=== PATIENT | female | born 1945 | race Caucasian/White ===

== ENCOUNTER 2024-05-12 13:30 | Inpatient (IN) | payer OTHER, SELFPAY ==
[2024-05-11 17:23] VITALS: BMI 26.4
[2024-05-11 17:24] VITALS: BP 160/86
[2024-05-11 17:26] VITALS: BP 160/76
[2024-05-11 17:56] LABS: % Eosinophils 4.4 % (0-6); % Immature Granulocytes 0.3 % (0-0.5); % Lymphocytes 26.9 % (20.5-51.1); % Monocytes 7.5 % (1.7-9.3); % Neutrophils 59.9 % (42.2-75.2); Absolute Basophils 0.1 10^3/uL (0-0.2); Absolute Eosinophils 0.3 10^3/uL (0-0.7); Absolute Lymphocytes 1.8 10^3/uL (1.2-3.4); Absolute Monocytes 0.5 10^3/uL (0.1-0.6); Absolute Neutrophils 4.1 10^3/uL (1.4-6.5); Hematocrit 38.6 % (37.0-47.0); Hemoglobin 12.1 g/dL (12.0-16.0); Mean Corp Hgb Conc. 31.3 g/dL (33.0-37.0); Mean Corpuscular Hgb 26.2 pg (27.0-31.0); Mean Corpuscular Volume 83.7 fL (81.0-99.0); Mean Platelet Volume 9.1 fL (7.4-10.4); Nucleated Red Blood Cells % 0 %; Platelet Count 292 10^3/uL (130-400); Red Blood Cell Count 4.61 10^6/uL (4.20-5.40); White Blood Cell Count 6.8 10^3/uL (4.8-10.8)
[2024-05-11 18:00] VITALS: BP 142/81
[2024-05-11 18:08] LABS: ALT (SGPT) 18 U/L (0-35); AST (SGOT) 22 U/L (14-36); Albumin 4.4 g/dl (3.5-5.0); Alkaline Phosphatase 76 U/L (38-126); Blood Urea Nitrogen 29 mg/dl (7-17); Calcium 8.9 mg/dl (8.4-10.2); Carbon Dioxide 24 mmol/L (22-30); Chloride 103 mmol/L (98-107); Estimated Creatinine Clearance 54 ml/min; Glucose 110 mg/dl (70-99); Potassium 4.2 mmol/L (3.5-5.1); Sodium 140 mmol/L (135-145); Total Bilirubin 0.2 mg/dl (0.2-1.3); Total Protein 6.9 g/dl (6.3-8.2); eGFR > 60.00
--- NOTE | 2024-05-11 18:51 | ED.GENMED ---
History of Present Illness
<Elsa Fountain MD, Resident - Last Filed: 05/11/24 21:53>
General
Chief Complaint: Weakness
Time Seen by Provider: 05/11/24 17:57
History of Present Illness
History of Present Illness:
79 y/o female with past medical history of hypothyroidism and Meniere's disease presenting to the ED with right sided weakness of the leg and arm. Pt has chronic low back pain and was having increased pain a couple days ago after moving furniture
but notes she was feeling weak on the right side starting last night. She was having difficulty moving around and standing up from bed. Pt notes palpitations and postural lightheadedness. Denies headache, visual changes, sensation loss, fever, chest
pain, urinary symptoms, abdominal pain, change in bowel movements. Has been taking Keflex since for sinus infection and notes post nasal drip. Denies falling and loss of consciousness.
Past History
<Elsa Fountain MD, Resident - Last Filed: 05/11/24 21:53>
Past History
ED Past Medical History: Hypercholesterolemia, Hypothyroidism and Other (Migraines, Hiatel hernia, IBS, Diverticulosis); Negative Asthma, HTN or NIDDM
ED Past Surgical History: Gynecological (Hysterectomy) and Other (Bladder lift)
Social History
Tobacco: Former smoker
Alcohol: None
Personal:
Living: with family
Review of Systems
<Elsa Fountain MD, Resident - Last Filed: 05/11/24 21:53>
Review of Systems
Constitutional: Reports no symptoms
EENT: Reports no symptoms
Respiratory: Reports no symptoms
Cardiac: Reports no symptoms
ABD/GI: Reports no symptoms
: Reports no symptoms
Musculoskeletal: Reports no symptoms
Skin: Reports no symptoms
Neurological: Reports weakness (right arm and leg)
Endocrine: Reports no symptoms
Hematologic/Lymphatic: Reports no symptoms
Psychiatric: Reports no symptoms
Phy Exam
<Elsa Fountain MD, Resident - Last Filed: 05/11/24 21:53>
Physical Exam
Physical Exam:
GENERAL: Alert, in no apparent distress
EYE: pupils equal and reactive
NECK: Supple, no significant adenopathy, no carotid bruit.
ENT: o/p clr, mmm.
CARDIAC: Regular rate and rhythm. Mild systolic murmur.
LUNGS: Clear breath sounds bilaterally, no acute respiratory distress, no wheezes/rales/rhonchi
ABDOMEN: Soft, without focal tenderness, no r/g, no cvat
NEUROLOGICAL: Alert and oriented. Mild right sided facial droop.
Muscle strength: RLE 3/5 LLE 5/5 RUE 4/5 LUE 5/5. Finger to nose: pt moves RUE slowly but coordination is intact
SKIN: Warm and dry, skin intact.
MUSCULOSKELETAL: No edema, well perfused.
PSYCH: Normal and appropriate interaction.
Course
<Elsa Fountain MD, Resident - Last Filed: 05/11/24 21:53>
Orders/Labs/Results
Orders:
Orders
05/11/24 17:49
Complete Blood Count/With Diff Urgent
Comprehensive Metabolic Panel Urgent
05/11/24 19:24
Electrocardiogram (*1) Stat
Reason for Study: Other
Other Reason for Exam: neuro symptoms
CT Head W/o Iv Contrast Urgent
Comment:
Reason For Exam: Right-sided weakness
Cardiac Monitoring- Treatment ONCE
EKG- Treatment ONCE
IV Insert/Care/Rem.- Treatment PRN
Pulse Ox/cont/shift [RESP] Stat
Quantity: 1
Abnormal Lab Results
05/11/24
17:49
MCH 26.2 L pg
(27.0-31.0)
MCHC 31.3 L g/dL
(33.0-37.0)
BUN 29 H mg/dl
(7-17)
Glucose 110 H mg/dl
(70-99)
05/11/24 17:49
05/11/24 17:49
Vital Signs
Initial and Last Documented VS:
Initial Vital Signs
Temp Pulse Resp BP Pulse Ox
98.1 F 86 12 160/86 98
05/11/24 17:24 05/11/24 17:24 05/11/24 17:24 05/11/24 17:24 05/11/24 17:24
Last Documented Vital Signs
Temp Pulse Resp BP Pulse Ox
98.1 F 82 19 172/77 96
05/11/24 17:24 05/11/24 19:15 05/11/24 19:15 05/11/24 19:00 05/11/24 19:15
<Mich Saab MD - Last Filed: 05/11/24 19:10>
Orders/Labs/Results
Orders:
Orders
05/11/24 17:49
Complete Blood Count/With Diff Urgent
Comprehensive Metabolic Panel Urgent
05/11/24 19:24
Electrocardiogram (*1) Stat
Reason for Study: Other
Other Reason for Exam: neuro symptoms
CT Head W/o Iv Contrast Urgent
Comment:
Reason For Exam: Right-sided weakness
Cardiac Monitoring- Treatment ONCE
EKG- Treatment ONCE
IV Insert/Care/Rem.- Treatment PRN
Pulse Ox/cont/shift [RESP] Stat
Quantity: 1
Abnormal Lab Results
05/11/24
17:49
MCH 26.2 L pg
(27.0-31.0)
MCHC 31.3 L g/dL
(33.0-37.0)
BUN 29 H mg/dl
(7-17)
Glucose 110 H mg/dl
(70-99)
05/11/24 17:49
05/11/24 17:49
Vital Signs
Initial and Last Documented VS:
Initial Vital Signs
Temp Pulse Resp BP Pulse Ox
98.1 F 86 12 160/86 98
05/11/24 17:24 05/11/24 17:24 05/11/24 17:24 05/11/24 17:24 05/11/24 17:24
Last Documented Vital Signs
Temp Pulse Resp BP Pulse Ox
98.1 F 82 19 172/77 96
05/11/24 17:24 05/11/24 19:15 05/11/24 19:15 05/11/24 19:00 05/11/24 19:15
<Elsa Fountain MD, Resident - Last Filed: 05/11/24 21:53>
MDM/Problems Addressed
Differential Diagnosis Includes:
Stroke
MDM/Problems Addressed:
79 y/o female presenting with right sided weakness.
# RUE and RLE weakness
- Most likely in the setting of stroke
- LWK ~24 hours ago, not a candidate for thrombolysis
- Head CT to r/u hemorrhage
- Admit for further evaluation
- EKG
- CBC, BMP
<Elsa Fountain MD, Resident - Last Filed: 05/11/24 21:53>
*Critical Care Note
Total Time (30-74mins, 75-104mins- exclusive of procedures): Not Applicable
<Elsa Fountain MD, Resident - Last Filed: 05/11/24 21:53>
Update Note
Update Note:
2139...Head CT no acute abnormality. Will admit for further evaluation
ED Attending Note
<Elsa Fountain MD, Resident - Last Filed: 05/11/24 21:53>
-
Portions of this chart may have been created with voice recognition software.� Occasional wrong word or��sound alike� substitutions may have occurred due to the inherent limitations of voice recognition software.
<Mich Saab MD - Last Filed: 05/11/24 19:10>
ED Attending Note
Patient seen and examined by attending physician: Yes
I performed a history and physical exam of patient and discussed management with resident, I reviewed resident's note and agree with documented findings and plan of care.: Yes
ED Attending Note:
79-year-old female with some right leg weakness for over 24 hours maybe longer some difficulty getting out of bed today from weakness. Denies headache visual issues speech issues or other complaints.
On exam patient is nontoxic in no distress. Warm and dry. Perfusing well. Lungs clear and equal. Heart regular rate and rhythm with a 1/6 systolic murmur. No carotid bruit. Speech is normal. Questionable right facial droop or slight loss of
nasolabial fold. Slight right arm pronation. Poor [id number] on the right. Poor [id number] on the right. Decreased strength of the right leg. Able to lift against gravity. Slight decrease sensation subjectively.
Impression is likely CVA. 24 hours old. Clearly not a thrombolytic candidate or IAT candidate. Will get a CT scan to screen for bleed and admit for further care
Discharge Plan
Departure
Patient Disposition: Admit
Date of Disposition: 05/11/24
Time of Disposition: 21:48
Presentation/result/management discussed w/ accepting MD/DO: Hospitalist
Discharge Problem:
Acute CVA (cerebrovascular accident)
Prescriptions:
No Action
polyethylene glycol 3350 [Miralax] 17 gram Powder In Packet
17 g PO DAILYPRN PRN (Reason: constipation)
venlafaxine 150 mg Capsule,Extended Release 24hr
300 mg PO Q48H
venlafaxine 150 mg Capsule,Extended Release 24hr
150 mg PO Q48H
omeprazole 40 mg Capsule,Delayed Release(Dr/Ec)
40 mg PO NOON
levothyroxine 100 mcg Tablet
100 mcg PO DAILY
ascorbic acid (vitamin C) [Vitamin C] 500 mg Tablet
500 mg PO DAILY
naproxen sodium [Aleve] 220 mg Tablet
440 mg PO BIDPRN PRN (Reason: mild pain)
aspirin 81 mg Tablet,Chewable
81 mg PO DAILY
cefuroxime axetil 500 mg Tablet
500 mg PO Q12H
Excedrin Migraine 250-250-65 mg Tablet
2 tab PO Q6HPRN PRN (Reason: migraine)
cholecalciferol (vitamin D3) [Vitamin D3] 25 mcg (1,000 unit) Tablet
25 mcg PO DAILY
Referrals:
Rona Wilson DO [Family Provider] -
Interventions
Interventions:
*Risk Screen - Suicide Last Done: 05/11/24 17:24
*General Assessment Last Done: 05/11/24 17:24
*Neglect/Abuse Screening Last Done: 05/11/24 17:24
ED- Fall Risk Assessment Last Done: 05/11/24 17:24
*ED COVID-19 Vaccine History Last Done: 05/11/24 17:24
ED- Cardiac Assessment Last Done: 05/11/24 17:31
ED- Neurological Assessment Last Done: 05/11/24 17:35
ED- Pulmonary Assessment Last Done: 05/11/24 17:31
Discharge Date and Time
Print Language: KAZAKH
[2024-05-11 19:00] VITALS: BP 172/77
--- NOTE | 2024-05-11 20:33 | EDRN ---
Pt POC - daughter [facility] [phone]
--- NOTE | 2024-05-11 22:48 | HPS.HSE ---
Family Physician
-
Family Physician: Rona Wilson
Chief Complaint
-
Weakness
History of Present Illness
Patient is an 79y F with PMH significant for hypothyroidism, depression and chronic back pain who presents to ED complaining of right-sided weakness. Patient provides somewhat disjointed history and details are difficult to make sense of. She
essentially reports heaviness and weakness in the RLE > RUE for the past several days. She was unable to get up / get OOB at all today which prompted her presentation to the ED for further evaluation.
Upon further discussion, it seems that patient has had intermittent issues with muscle cramping in the legs and hands, generalized weakness and fatigue. She also reports issues with dropping objects / weakness in the R hand (she is right-handed)
over the past YEAR or so. It does not seem that she has sought evaluation for any of these longer standing issues.
Patient developed headache and sinus pressure about 5 days ago. She spoke with a medical provider via phone and was prescribed cefuroxime for 'sinus infection'. She has been taking this for the past 4 days.
Patient denies any vision changes or slurred speech.
She denies any chest pain, dyspnea, cough, fevers / chills, GI or complaints.
Medical History
Past Medical History
Past Medical History: Reports Other
Additional Past Medical History:
Hypothyroidism
Anxiety / Depression
GERD
Chronic Back Pain
Meniere's Disease
Past Surgical History: Reports Other
Additional Past Surgical History:
Hysterectomy
Bladder Repair
Social History
Tobacco: Non-smoker
Alcohol: None
Drug: None
Family History
Family History: Not pertinent
Allergies / Home Medications
Allergies reflects when Allergies were last updated in [facility].
Home Medications with original date entered in [facility]
Allergy/Medication List:
Allergies
Allergy/AdvReac Type Severity Reaction Status Date / Time
ciprofloxacin [From Cipro] Allergy Unknown Verified 05/11/24 17:33
codeine [Codeine] Allergy Unknown Verified 05/11/24 17:33
nitrofurantoin Allergy Unknown Verified 05/11/24 17:33
[From Macrobid]
nitrofurantoin Allergy Unknown Verified 05/11/24 17:33
macrocrystalline
[From Macrobid]
Penicillins Allergy Unknown Verified 05/11/24 17:33
Sulfa (Sulfonamide Allergy Unknown Verified 05/11/24 17:33
Antibiotics)
Home Medications
ascorbic acid (vitamin C) 500 mg tablet (Vitamin C) 500 mg PO DAILY 05/11/24
aspirin 81 mg chewable tablet 81 mg PO DAILY 05/11/24
firdfle-snlsycwsaywlt-kipnwcje 250 mg-250 mg-65 mg tablet (Excedrin Migraine) 2 tab PO Q6HPRN PRN migraine 05/11/24
cefuroxime axetil 500 mg tablet 500 mg PO Q12H 05/11/24
cholecalciferol (vitamin D3) 25 mcg (1,000 unit) tablet (Vitamin D3) 25 mcg PO DAILY 05/11/24
levothyroxine 100 mcg tablet 100 mcg PO DAILY 05/11/24
naproxen sodium 220 mg tablet (Aleve) 440 mg PO BIDPRN PRN mild pain 05/11/24
omeprazole 40 mg capsule,delayed release 40 mg PO NOON 05/11/24
polyethylene glycol 3350 17 gram oral powder packet (Miralax) 17 g PO DAILYPRN PRN constipation 05/11/24
venlafaxine 150 mg capsule,extended release 24 hr 150 mg PO Q48H 05/11/24
venlafaxine 150 mg capsule,extended release 24 hr 300 mg PO Q48H 05/11/24
Review of Systems
-
History Source: Patient
A 12 point ROS was completed and negative except as noted: Yes
Constitutional: Reports Fatigue; Denies Fever or Chills
EENT: Denies Sore Throat
Respiratory: Denies Cough or Trouble Breathing
Cardiac: Denies Chest Pain or Palpitations
Abdomen/GI: Denies Abdominal Pain, Nausea, Vomiting, Diarrhea, Bloody Stools or Black Stools
: Denies Dysuria, Frequency or Flank Pain
Musculoskeletal: Reports Muscle Pain (cramping of lower extremities.); Denies Joint Pain or Edema
Neurological: Reports Headache and Weakness; Denies Dizzy
Psych: Denies Depression or Anxiety
Physical Exam
Vital Signs
Vital Signs
Temp Pulse Resp BP Pulse Ox
98.1 F 82 19 172/77 96
05/11/24 17:24 05/11/24 19:15 05/11/24 19:15 05/11/24 19:00 05/11/24 19:15
Physical Exam
General: Other (79y F in no acute distress.)
HEENT: Other (Dry MM. PERRLA. Slight downturn of R angle fo the mouth. Smile symmetric / tongue extends to midline.)
Respiratory: Clear; No Wheezes, Rales or Rhonchi
Cardiac: S1/S2, Regular Rhythm and Murmur (II/ [facility])
GI: Soft, Non Tender, Non Distended and Normal Bowel Sounds
Musculoskeletal: No Clubbing, No Cyanosis and Other (LLE edema - chronic per patient.)
Neuro: AO x 3 and Other (RUE weakness compared to the L in this R-handed female. Sensation symmetric / intact. )
Laboratory Results
-
05/11/24 17:49
05/11/24 17:49
Laboratory Results
Total Bilirubin 0.2 mg/dl (0.2-1.3) 05/11/24 17:49
AST 22 U/L (14-36) 05/11/24 17:49
ALT 18 U/L (0-35) 05/11/24 17:49
Alkaline Phosphatase 76 U/L (38-126) 05/11/24 17:49
Impression/Plan
-
A/P: Patient is an 79y F with PMH significant for anxiety / depression and hypothyroidism who presents to ED complaining of right-sided weakness.
Weakness
- Observe overnight for further evaluation and treatment.
- Acuity of her symptoms is not at all clear - certainly many chronic issues contributing to this presentation.
- In regards to apparent new / worsened R sided weakness - check MR brain in the AM (will require pre-medication).
- PT / OT evaluations.
- Neurology evaluation for additional recommendations.
- Check TFTs.
- If above evaluation is unremarkable - consider C-spine imaging for further evaluation.
- Follow for any new / worsening deficits.
- Continue ASA and add Plavix for now.
- Check lipid panel, A1C, etc.
Elevated BP
- No known history of hypertension / hypertensive medications.
- IV hydralazine for now for very high BP.
- If BP is persistently elevated, would benefit from oral regimen.
Hypothyroidism
- Check TFTs as noted above.
- Continue current dose of T4 supplementation for now and adjust as needed.
Anxiety / Depression
- Continue current dose of venlafaxine for now.
- Ativan prior to MRI.
Sinus Infection
- Would hold further abx treatment for now.
- Monitor for any fever or other new / worsening symptoms.
- Nasal irrigation as an outpatient may be beneficial.
DVT Prophylaxis: SCDs
Code Status: Full
[2024-05-12] VITALS (10 sets, daily range): BP systolic 111–168; BP diastolic 54–92; PULSE 79–107; O2SAT 92–94; BMI 27.9; BMI 28.5
[2024-05-12] MEDS: EFFEXOR XR 150 MG PO (02:16)
[2024-05-12 05:45] LABS: Hematocrit 38.1 % (37.0-47.0); Hemoglobin 12.2 g/dL (12.0-16.0); Mean Corpuscular Hgb 26.6 pg (27.0-31.0); Mean Corpuscular Volume 83.2 fL (81.0-99.0); Mean Platelet Volume 9.5 fL (7.4-10.4); Platelet Count 297 10^3/uL (130-400); Red Blood Cell Count 4.58 10^6/uL (4.20-5.40); Red Cell Dist. Width 14.2 % (11.5-14.5); White Blood Cell Count 7.2 10^3/uL (4.8-10.8)
[2024-05-12 06:06] LABS: Blood Urea Nitrogen 21 mg/dl (7-17); Calcium 8.7 mg/dl (8.4-10.2); Carbon Dioxide 26 mmol/L (22-30); Chloride 104 mmol/L (98-107); Estimated Creatinine Clearance 57 ml/min; Glucose 99 mg/dl (70-99); HDL Cholesterol 56 mg/dl; LDL Cholesterol, Calculated 144 mg/dl; Potassium 3.9 mmol/L (3.5-5.1); Sodium 141 mmol/L (135-145); Total Cholesterol 219 mg/dl (50-199); Triglyceride 95 mg/dl (10-149); Very Low Density Lipoprotein 19 mg/dl (0-30); eGFR > 60.00
[2024-05-12 06:36] LABS: TSH Reflex To Free T4 1.56 uIU/ml (0.47-4.68)
--- NOTE | 2024-05-12 07:35 | CON.NEURO ---
Consultation
Order
Date of Consultation: 05/12/24
Requesting Provider: Jonathan Gary DO
Reason for Consult: weakness, CVA/TIA
CC: right sided weakness
HPI: This is an 79-year-old RH woman who presented to [facility] on May 11, 2024 with right hemiparesis.
Ms. De La Vega describes feeling 'funny' and 'a little weird' after lying down in the evening of on 05/11/2024 and later experienced an inability to get back up after sliding off the bed. She notes that her right arm weakness developed gradually,
accompanied by tingling and numbness, which she initially attributed to her back issues. She also mentions difficulty walking straight for a couple of days, with her right leg becoming weaker before her right arm.
The patient lives with her son and manages her medications independently. She has not driven in the past two years. She mentions taking baby aspirin but often forgets to do so. She also takes 'weight loss gummies' from [employer]. Additionally, she
takes Excedrin for headaches, consuming at least six tablets daily for the past 35 years. Yeimi reports a history of migraines since high school. She experiences headaches on the top of her head, described as feeling like being hit with 2 by 4s, and
notes that movement worsens the pain. She has visual aura with her headaches but no photo or phonophobia.
ER VS: 160/86, 86,98% on RA, afebrile.
EKG: NSR, RBBB, QTc Int : 481 m
PDMP: none
CT head-chronic R MCA/SUPERVIS[employer]ING [employer] ANNEALING junction infarct. Moderate subcortical, deep, and periventricular white matter low-attenuation.
Labs: Glucose�110, normal WBCs, sodium, creatinine, LDL�144, normal TSH.
PMH: migraine with aura, asthma, hypothyroidism, IBS, M�ni�re's disease, SANIA, GERD, vitamin D deficiency, recurrent UTI
PSH: JEFFRY, bladder suspension
SH:, lives with a son; former smoker; no history of excessive ETOH use
FH: Not contributory to current presentation.
All: Ciprofloxacin, codeine, nitrofurantoin, penicillins, sulfa
ROS:Constitutional: Negative. Negative for chills, fever and unexpected weight change.
HENT: For poor hearing, bilateral tinnitus.
Eyes: Negative. Negative for photophobia, pain and visual disturbance.
Respiratory: Negative for cough, choking and shortness of breath.
Cardiovascular: Negative for chest pain, palpitations and leg swelling.
Gastrointestinal: Negative for abdominal pain and vomiting.
Endocrine: Negative. Negative for cold intolerance.
Genitourinary: Positive for urinary incontinence
Musculoskeletal: Positive for chronic back pain
Skin: Negative for rash.
Allergic/Immunologic: Negative. Negative for immunocompromised state.
Neurological: Positive for right-sided, chronic headache
Psychiatric/Behavioral: Negative for behavioral problems, confusion and hallucinations.
General: Well developed. In no acute distress.
Cardio: Regular rate and rhythm without murmur. Extremities are without cyanosis or edema.
Neuro:
Mental Status: Alert, oriented to person, place, and date. Impaired attention and recall. No alexia. Good fund of knowledge. Follows complex requests across the midline. Comprehension, naming, and repetition intact.
Cranial Nerves: . Pupils are equally round and reactive to light. EOMs full. Visual flores full to confrontation. No ptosis. No nystagmus. V1-V3 intact to light touch and pinprick bilaterally, symmetric. Face symmetric. Normal hearing AU.
The palate elevated well. SCMs and traps 5/5. Tongue midline. No dysarthria.
Motor: Increased motor tone lower extremities right hemiparesis
Reflexes: Limited exam due to positioning, positive grasp bilaterally
Sensory: Preserved vibration at the toes
Coordination: Ataxia on the
Gait: deferred
Assessment and Plan:
I. Subacute left ataxic hemiparesis lacunar syndrome
II. 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
III. Migraine with aura, medication overuse headache
-Continue Telemetry monitoring.
-Start aspirin 81 mg once a
-Brain MRI without sania with sedation
-TTE with bubble studies
-ASA 81 mg QD indefinitely.
-Lipitor 40 mg QHS.
-Please check magnesium, ESR, CRP. ua tox
-Start Topiramate 25 mg BID with the plan to slowly wean off Excedrin
-IV Toradol 30 mg, Reglan 10 mg, Benadryl 25 mg Q8h PRN for moderate to severe headache.
-Nurtec 75 mg PRN for rescue as OP(no triptans)
-PT
-DVT prophylaxis.
I personally reviewed all radiology and labs along with past medical records pertinent to current medical problems. Total time spent in patient care is 60 minutes.
Thank you for allowing us to participate in the care of this patient. We will continue to follow. Please do not hesitate to contact us with any questions or concerns.
Subjective/Objective
Subjective Data
Date of Service: May 12, 2024
Objective Data
Vital Signs
Temp Pulse Resp BP Pulse Ox
36.8 C 73 18 130/62 95
05/12/24 03:57 05/12/24 03:57 05/12/24 03:57 05/12/24 03:57 05/12/24 04:08
Lab Results
05/12/24 04:44
05/12/24 04:44
Sodium 141 mmol/L (135-145) 05/12/24 04:44
Potassium 3.9 mmol/L (3.5-5.1) 05/12/24 04:44
BUN 21 mg/dl (7-17) H 05/12/24 04:44
Glucose 99 mg/dl (70-99) 05/12/24 04:44
Calcium 8.7 mg/dl (8.4-10.2) 05/12/24 04:44
LDL Cholesterol, Calc 144 mg/dl 05/12/24 04:44
Patient Allergies
ciprofloxacin [From Cipro] Allergy (Verified 05/11/24 17:33)
Unknown
codeine [Codeine] Allergy (Verified 05/11/24 17:33)
Unknown
nitrofurantoin [From Macrobid] Allergy (Verified 05/11/24 17:33)
Unknown
nitrofurantoin macrocrystalline [From Macrobid] Allergy (Verified 05/11/24 17:33)
Unknown
Penicillins Allergy (Verified 05/11/24 17:33)
Unknown
Sulfa (Sulfonamide Antibiotics) Allergy (Verified 05/11/24 17:33)
Unknown
Medications
-
Active Medications
Generic Name Dose Route Start Last Admin
Trade Name Freq PRN Reason Stop Dose Admin
Acetaminophen 650 mg 05/12/24 00:11
Acetaminophen 325 Mg Tablet PO 06/09/24 00:10
Q4HPRN PRN
Mild Pain / Temp > 101
Aspirin 81 mg 05/12/24 08:00
Aspirin 81 Mg Chewable Tablet PO 06/09/24 07:59
DAILY SAROJ
Clopidogrel Bisulfate 75 mg 05/12/24 08:00
Clopidogrel 75 Mg Tablet PO 06/09/24 07:59
DAILY SAROJ
Hydralazine HCl 5 mg 05/12/24 00:11
Hydralazine 20 Mg/Ml Vial IV 06/09/24 00:10
Q6HPRN PRN
SBP > 180
Levothyroxine Sodium 100 mcg 05/12/24 08:00
Levothyroxine 100 Mcg Tablet PO 06/09/24 07:59
DAILY SAROJ
Polyethylene Glycol 17 grams 05/12/24 00:11
Polyethylene Glycol Powder 17 Grams Packet PO 06/09/24 00:10
DAILY PRN
Constipation
Venlafaxine HCl 300 mg 05/12/24 23:00
Venlafaxine 150 Mg Extended Release Capsule PO 06/09/24 22:59
Q48H SAROJ
Venlafaxine HCl 150 mg 05/12/24 01:36 05/12/24 02:16
Venlafaxine 150 Mg Extended Release Capsule PO 06/09/24 01:35 150 mg
Q48H SAROJ Administration
Home Medications
�Medication �Instructions �Recorded
ascorbic acid (vitamin C) 500 mg 500 mg PO DAILY 05/11/24
tablet (Vitamin C)
aspirin 81 mg chewable tablet 81 mg PO DAILY 05/11/24
dudcuzx-bljdlmemwjmbe-euyqftmn 250 2 tab PO Q6HPRN PRN migraine 05/11/24
mg-250 mg-65 mg tablet (Excedrin
Migraine)
cefuroxime axetil 500 mg tablet 500 mg PO Q12H 05/11/24
cholecalciferol (vitamin D3) 25 25 mcg PO DAILY 05/11/24
mcg (1,000 unit) tablet (Vitamin
D3)
levothyroxine 100 mcg tablet 100 mcg PO DAILY 05/11/24
naproxen sodium 220 mg tablet 440 mg PO BIDPRN PRN mild pain 05/11/24
(Aleve)
omeprazole 40 mg capsule,delayed 40 mg PO NOON 05/11/24
release
polyethylene glycol 3350 17 gram 17 g PO DAILYPRN PRN constipation 05/11/24
oral powder packet (Miralax)
venlafaxine 150 mg 150 mg PO Q48H 05/11/24
capsule,extended release 24 hr
venlafaxine 150 mg 300 mg PO Q48H 05/11/24
capsule,extended release 24 hr
Vital Signs and Labs
-
Vital Signs and Labs:
Vital Signs
Temp Pulse Resp BP Pulse Ox
36.8 C 73 18 130/62 95
05/12/24 03:57 05/12/24 03:57 05/12/24 03:57 05/12/24 03:57 05/12/24 04:08
Lab Results
05/12/24 04:44
05/12/24 04:44
Sodium 141 mmol/L (135-145) 05/12/24 04:44
Potassium 3.9 mmol/L (3.5-5.1) 05/12/24 04:44
BUN 21 mg/dl (7-17) H 05/12/24 04:44
Glucose 99 mg/dl (70-99) 05/12/24 04:44
Calcium 8.7 mg/dl (8.4-10.2) 05/12/24 04:44
LDL Cholesterol, Calc 144 mg/dl 05/12/24 04:44
Medications
-
Medications:
Generic Name Dose Route Start Last Admin
Trade Name Freq PRN Reason Stop Dose Admin
Acetaminophen 650 mg 05/12/24 00:11
Acetaminophen 325 Mg Tablet PO 06/09/24 00:10
Q4HPRN PRN
Mild Pain / Temp > 101
Aspirin 81 mg 05/12/24 08:00
Aspirin 81 Mg Chewable Tablet PO 06/09/24 07:59
DAILY SAROJ
Clopidogrel Bisulfate 75 mg 05/12/24 08:00
Clopidogrel 75 Mg Tablet PO 06/09/24 07:59
DAILY SAROJ
Hydralazine HCl 5 mg 05/12/24 00:11
Hydralazine 20 Mg/Ml Vial IV 06/09/24 00:10
Q6HPRN PRN
SBP > 180
Levothyroxine Sodium 100 mcg 05/12/24 08:00
Levothyroxine 100 Mcg Tablet PO 06/09/24 07:59
DAILY SAROJ
Polyethylene Glycol 17 grams 05/12/24 00:11
Polyethylene Glycol Powder 17 Grams Packet PO 06/09/24 00:10
DAILY PRN
Constipation
Venlafaxine HCl 300 mg 05/12/24 23:00
Venlafaxine 150 Mg Extended Release Capsule PO 06/09/24 22:59
Q48H SAROJ
Venlafaxine HCl 150 mg 05/12/24 01:36 05/12/24 02:16
Venlafaxine 150 Mg Extended Release Capsule PO 06/09/24 01:35 150 mg
Q48H SAROJ Administration
Home Medications
-
Home Medications
ascorbic acid (vitamin C) 500 mg tablet (Vitamin C) 500 mg PO DAILY 05/11/24
aspirin 81 mg chewable tablet 81 mg PO DAILY 05/11/24
pmyqvtk-itrbjlvhmtxre-cxsvhinr 250 mg-250 mg-65 mg tablet (Excedrin Migraine) 2 tab PO Q6HPRN PRN migraine 05/11/24
cefuroxime axetil 500 mg tablet 500 mg PO Q12H 05/11/24
cholecalciferol (vitamin D3) 25 mcg (1,000 unit) tablet (Vitamin D3) 25 mcg PO DAILY 05/11/24
levothyroxine 100 mcg tablet 100 mcg PO DAILY 05/11/24
naproxen sodium 220 mg tablet (Aleve) 440 mg PO BIDPRN PRN mild pain 05/11/24
omeprazole 40 mg capsule,delayed release 40 mg PO NOON 05/11/24
polyethylene glycol 3350 17 gram oral powder packet (Miralax) 17 g PO DAILYPRN PRN constipation 05/11/24
venlafaxine 150 mg capsule,extended release 24 hr 150 mg PO Q48H 05/11/24
venlafaxine 150 mg capsule,extended release 24 hr 300 mg PO Q48H 05/11/24
[2024-05-12] MEDS: PLAVIX 75 MG PO (08:09)
[2024-05-12] MEDS: LOW STRENGTH ASPIRIN 81 MG PO (08:09)
[2024-05-12] MEDS: SYNTHROID 100 MCG PO (08:09)
[2024-05-12] MEDS: ATIVAN 1 MG PO (11:03)
--- NOTE | 2024-05-12 11:47 | W.PN.HOSP.TC ---
Today's Communication/Plan
-
Monitor vital signs see plan
MRI pending
PT/OT
Continue with aspirin and Plavix
Neurology following
Discussed with family at bedside
Assessment / Plan
Assessment / Plan
General: Other (79y F in no acute distress.)
HEENT: Other (Dry MM. PERRLA)
Respiratory: Clear; No Wheezes, Rales or Rhonchi
Cardiac: S1/S2, Regular Rhythm and Murmur (II/ YOKO)
GI: Soft, Non Tender, Non Distended and Normal Bowel Sounds
Musculoskeletal:Other (LLE edema - chronic per patient.)
Neuro: AO x 3 and Other (RUE weakness compared to the Left)
Right-sided weakness suspect secondary to TIA/CVA
- Acuity of her symptoms is not at all clear - certainly many chronic issues contributing to this presentation.
MRI brain pending
CT with old CVA
- PT / OT evaluations.
- Neurology following
- Follow for any new / worsening deficits.
- Continue ASA and add Plavix for now.
A1C check
Elevated BP
- No known history of hypertension / hypertensive medications.
- IV hydralazine for now for very high BP.
- If BP is persistently elevated, would benefit from oral regimen.
Hypothyroidism
TSH 1.5
- Continue current dose of T4 supplementation for now and adjust as needed.
Anxiety / Depression
- Continue current dose of venlafaxine for now.
- Ativan prior to MRI.
Sinus Infection
- Would hold further abx treatment for now.
- Monitor for any fever or other new / worsening symptoms.
- Nasal irrigation as an outpatient may be beneficial.
History of tension headache
Patient took Excedrin at home, plan to wean Excedrin. Neurology started topiramate
DVT Prophylaxis: SCDs
Code Status: Full
I spent a total of 52 minutes with the patient or on the floor. More than 50% of this time involved counseling and coordination of care.
Anticipated Discharge: Within 24 hours
Subjective/Interval History
-
Date of Service: May 12, 2024
denies pain
Objective Data
-
Labs:
Laboratory Results
05/12/24
04:44
WBC 7.2
Hgb 12.2
Hct 38.1
Plt Count 297
Sodium 141
Potassium 3.9
Chloride 104
Carbon Dioxide 26
BUN 21 H
Creatinine 0.6
Glucose 99
Calcium 8.7
Vital Signs:
Vital Signs
Temp Pulse Resp BP Pulse Ox
98.6 F 90 16 130/62 95
05/12/24 07:30 05/12/24 07:30 05/12/24 07:30 05/12/24 03:57 05/12/24 08:00
I&O
05/11/24 05/12/24 05/13/24
06:59 06:59 06:59
Intake Total 0 / 0
Balance 0 / 0
[2024-05-12 11:57] LABS: Erythrocyte Sed Rate 10 mm/hour (0-20)
--- NOTE | 2024-05-12 12:00 | PTCARENOTE ---
Stroke/neurological check not complete at 1200 due to patient being in MRI. Will complete when patient returns to floor.
[2024-05-12 12:18] LABS: C-Reactive Protein < 5.00 mg/L (0.0-10.00)
--- NOTE | 2024-05-12 12:23 | PTCARENOTE ---
Pt returned from MRI. Stroke/neurological check complete. Care ongoing.
[2024-05-12] MEDS: TOPAMAX 25 MG PO ×2 (12:31→20:30)
[2024-05-12 13:08] LABS: Vitamin B12 604 pg/ml (239-931)
[2024-05-12 14:26] LABS: Amphetamines Negative (Negative); Barbiturates Negative (Negative); Benzodiazepines Negative (Negative); Buprenorphine Negative (Negative); Cocaine Negative (Negative); Marijuana Negative (Negative); Methadone Negative (Negative); Methamphetamines Negative (Negative); Opiates Negative (Negative); Phencyclidine Negative (Negative); Tricyclic Antidepressants Negative (Negative)
[2024-05-12 14:31] LABS: Glycohemoglobin (HgbA1c) 5.8 % (4.0-5.6)
--- NOTE | 2024-05-12 16:11 | CM ---
Met with pt at bedside
Pt reports she lives with her son in an apartment, elevator access to unit
Pt reports independent with adl's, ambulation at bedside. Son shops and prepares meals per pt
DME - none
SNF/HH - denies past hx
PCP - Rona Kim
Pharm - [facility]
Discussed IMM with pt - unable to sign. Given copy
Plan - TBD - anticipate SNF when medically stable
[2024-05-12 16:53] LABS: Magnesium 1.8 mg/dl (1.6-2.3)
[2024-05-12] MEDS: EFFEXOR XR 300 MG PO (23:53)
[2024-05-13] VITALS (9 sets, daily range): BP systolic 109–149; BP diastolic 71–94; PULSE 79–125; O2SAT 97
[2024-05-13] MEDS: PLAVIX PO (07:54)
[2024-05-13] MEDS: SYNTHROID 100 MCG PO (07:56)
[2024-05-13] MEDS: TOPAMAX 25 MG PO ×2 (07:56→20:20)
[2024-05-13] MEDS: LOW STRENGTH ASPIRIN 81 MG PO (07:56)
[2024-05-13] MEDS: PLAVIX 75 MG PO (08:15)
--- NOTE | 2024-05-13 11:17 | CM ---
Addendum entered by Catarina Robin 05/13/24 15:30:
Spoke with pts daughter Debra at bedside - [phone]
[facility]
Referrals sent in Care port
Will need auth
Plan - anticipate SNF when medically ready
Original Note:
Chart reviewed. Met with pt and her daughter at bedside
PT/OR recs - SNF. Discussed with daughter and pt
Given choice list of facilities to review from Medicare.gov. Per daughter, family will review.
Requested family make at least 3 choices
CM will f/u with family/pt regarding choice
Will need auth
Plan - anticipate SNF when medically ready
--- NOTE | 2024-05-13 11:48 | W.PN.HOSP.TC ---
Today's Communication/Plan
-
Monitor vital signs see plan
CTA
Continue with aspirin Plavix
Neurology to see today
PT/OT
Assessment / Plan
Assessment / Plan
General: Other (79y F in no acute distress.)
HEENT: Other (Dry MM. PERRLA)
Respiratory: Clear; No Wheezes, Rales or Rhonchi
Cardiac: S1/S2, Regular Rhythm and Murmur (II/ YOKO)
GI: Soft, Non Tender, Non Distended and Normal Bowel Sounds
Musculoskeletal:Other (LLE edema - chronic per patient.)
Neuro: AO x 3 and Other (RUE weakness compared to the Left)
Right-sided weakness suspect secondary to Acute/Subacute CVA
- Acuity of her symptoms is not at all clear - certainly many chronic issues contributing to this presentation.
MRI brain with acute/subacute CVA
CT with old CVA
- PT / OT evaluations
- Neurology following
- Follow for any new / worsening deficits.
- Continue ASA and add Plavix
A1C 5.8
CTA pending
Elevated BP
- No known history of hypertension / hypertensive medications.
- IV hydralazine prn for now for very high BP.
- If BP is persistently elevated, would benefit from oral regimen. now BP normal
Hypothyroidism
TSH 1.5
- Continue current dose of T4 supplementation for now and adjust as needed.
Anxiety / Depression
- Continue current dose of venlafaxine for now.
- Ativan prior to MRI.
Sinus Infection
- Would hold further abx treatment for now.
- Monitor for any fever or other new / worsening symptoms.
- Nasal irrigation as an outpatient may be beneficial.
History of tension headache
Patient took Excedrin at home, plan to wean Excedrin. Neurology started topiramate
DVT Prophylaxis: SCDs
Code Status: Full
Anticipated Discharge: 24 - 48 hours
Subjective/Interval History
-
Date of Service: May 13, 2024
denies headache
Objective Data
-
Vital Signs:
Vital Signs
Temp Pulse Resp BP Pulse Ox
98.2 F 79 18 129/75 96
05/13/24 07:00 05/13/24 07:00 05/13/24 07:00 05/13/24 07:00 05/13/24 08:00
I&O
05/12/24 05/13/24 05/14/24
06:59 06:59 06:59
Intake Total 0 / 0 1200 / 1200
Output Total 250 / 250
Balance 0 / 0 950 / 950
--- NOTE | 2024-05-13 14:45 | W.PN.NEURO.1 ---
Today's Communication / Plan
-
.
Subjective/Objective
Subjective Data
Date of Service: May 13, 2024
Neurology follow-up note.
Ms. De La Vega is discouraged that her right sided weakness is not improving. No reports of headaches, sensory changes or visual deficits.
She tolerates Topamax well. Did not require headache rescue rescue therapy since admission.
ALEKSANDRA-no evidence of thrombotic source.
CTA head/neck no evidence of significant stenosis
Tele-sinus rhythm
A1C 5.8, LDL-144
PMH: migraine with aura, asthma, hypothyroidism, IBS, M�ni�re's disease, SANIA, GERD, vitamin D deficiency, recurrent UTI
PSH: JEFFRY, bladder suspension
SH:, lives with a son; former smoker; no history of excessive ETOH use
FH: Not contributory to current presentation.
All: Ciprofloxacin, codeine, nitrofurantoin, penicillins, sulfa
ROS:Constitutional: Negative. Negative for chills, fever and unexpected weight change.
HENT: For poor hearing, bilateral tinnitus.
Eyes: Negative. Negative for photophobia, pain and visual disturbance.
Respiratory: Negative for cough, choking and shortness of breath.
Cardiovascular: Negative for chest pain, palpitations and leg swelling.
Gastrointestinal: Negative for abdominal pain and vomiting.
Endocrine: Negative. Negative for cold intolerance.
Genitourinary: Positive for urinary incontinence
Musculoskeletal: Positive for chronic back pain
Skin: Negative for rash.
Allergic/Immunologic: Negative. Negative for immunocompromised state.
Neurological: Positive for right-sided
Psychiatric/Behavioral: Negative for behavioral problems, confusion and hallucinations.
General: Well developed. In no acute distress.
Cardio: Regular rate and rhythm without murmur. Extremities are without cyanosis or edema.
Neuro:
Mental Status: Alert, oriented to person, place, and date. Impaired attention and recall. No alexia. Good fund of knowledge. Follows complex requests across the midline. Comprehension, naming, and repetition intact.
Cranial Nerves: . Pupils are equally round and reactive to light. EOMs full. Visual flores full to confrontation. No ptosis. No nystagmus. V1-V3 intact to light touch and pinprick bilaterally, symmetric. Mild R facial weakness. Normal hearing
AU. The palate elevated well. SCMs and traps 5/5. Tongue midline. No dysarthria.
Motor: Drifts R arm to the bed in <10 seconds, R leg drift(does not touch bed in< 5 seconds)
Reflexes: Limited exam due to positioning, positive grasp bilaterally
Gait: deferred
Assessment and Plan:
I. Subacute left LSA stroke. Likely etiology-small vessel disease.
II. 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
III. Migraine with aura, medication overuse headache
-Continue Telemetry monitoring.
-ASA 81 mg QD indefinitely.
-Lipitor 40 mg QHS.
-Stop Plavix given NIH score
-Titrate Topamax by 25 mg every 3-5 days to target dose of 50 mg twice daily as tolerated. Monitor for metabolic acidosis
-Nurtec 75 mg PRN for rescue as OP(no triptans)
-OP Holter monitoring
-PT
-DVT prophylaxis.
-Neurology follow-up in 2�3 weeks
-Please recall neurology service with any questions or concerns
-The case was discussed with patient's daughter
I personally reviewed all radiology and labs along with past medical records pertinent to current medical problems. Total time spent in patient care is 60 minutes.
Thank you for allowing us to participate in the care of this patient. Please do not hesitate to contact us with any questions or concerns.
Objective Data
Vital Signs
Temp Pulse Resp BP Pulse Ox
36.7 C 96 18 109/72 96
05/13/24 11:00 05/13/24 11:00 05/13/24 11:00 05/13/24 11:00 05/13/24 11:00
Lab Results
05/12/24 04:44
05/12/24 04:44
Sodium 141 mmol/L (135-145) 05/12/24 04:44
Potassium 3.9 mmol/L (3.5-5.1) 05/12/24 04:44
BUN 21 mg/dl (7-17) H 05/12/24 04:44
Glucose 99 mg/dl (70-99) 05/12/24 04:44
Calcium 8.7 mg/dl (8.4-10.2) 05/12/24 04:44
LDL Cholesterol, Calc 144 mg/dl 05/12/24 04:44
Vitamin B12 604 pg/ml (239-931) 05/12/24 04:44
Ur Buprenorphine Negative (Negative) 05/12/24 12:38
Patient Allergies
ciprofloxacin [From Cipro] Allergy (Verified 05/11/24 17:33)
Unknown
codeine [Codeine] Allergy (Verified 05/11/24 17:33)
Unknown
nitrofurantoin [From Macrobid] Allergy (Verified 05/11/24 17:33)
Unknown
nitrofurantoin macrocrystalline [From Macrobid] Allergy (Verified 05/11/24 17:33)
Unknown
Penicillins Allergy (Verified 05/11/24 17:33)
Unknown
Sulfa (Sulfonamide Antibiotics) Allergy (Verified 05/11/24 17:33)
Unknown
Vital Signs and Labs
-
Vital Signs and Labs:
Vital Signs
Temp Pulse Resp BP Pulse Ox
36.7 C 96 18 109/72 96
05/13/24 11:00 05/13/24 11:00 05/13/24 11:00 05/13/24 11:00 05/13/24 11:00
Lab Results
05/12/24 04:44
05/12/24 04:44
Sodium 141 mmol/L (135-145) 05/12/24 04:44
Potassium 3.9 mmol/L (3.5-5.1) 05/12/24 04:44
BUN 21 mg/dl (7-17) H 05/12/24 04:44
Glucose 99 mg/dl (70-99) 05/12/24 04:44
Calcium 8.7 mg/dl (8.4-10.2) 05/12/24 04:44
LDL Cholesterol, Calc 144 mg/dl 05/12/24 04:44
Vitamin B12 604 pg/ml (239-931) 05/12/24 04:44
Ur Buprenorphine Negative (Negative) 05/12/24 12:38
Medications
-
Medications:
Generic Name Dose Route Start Last Admin
Trade Name Freq PRN Reason Stop Dose Admin
Acetaminophen 650 mg 05/12/24 00:11
Acetaminophen 325 Mg Tablet PO 06/09/24 00:10
Q4HPRN PRN
Mild Pain / Temp > 101
Aspirin 81 mg 05/12/24 08:00 05/13/24 07:56
Aspirin 81 Mg Chewable Tablet PO 06/09/24 07:59 81 mg
DAILY SAROJ Administration
Clopidogrel Bisulfate 75 mg 05/12/24 08:00 05/13/24 08:15
Clopidogrel 75 Mg Tablet PO 06/09/24 07:59 75 mg
DAILY SAROJ Administration
Hydralazine HCl 5 mg 05/12/24 00:11
Hydralazine 20 Mg/Ml Vial IV 06/09/24 00:10
Q6HPRN PRN
SBP > 180
Levothyroxine Sodium 100 mcg 05/12/24 08:00 05/13/24 07:56
Levothyroxine 100 Mcg Tablet PO 06/09/24 07:59 100 mcg
DAILY SAROJ Administration
Polyethylene Glycol 17 grams 05/12/24 00:11
Polyethylene Glycol Powder 17 Grams Packet PO 06/09/24 00:10
DAILY PRN
Constipation
Topiramate 25 mg 05/12/24 12:00 05/13/24 07:56
Topiramate 25 Mg Tablet PO 06/09/24 11:59 25 mg
BID SAROJ Administration
Venlafaxine HCl 300 mg 05/12/24 23:00 05/12/24 23:53
Venlafaxine 150 Mg Extended Release Capsule PO 06/09/24 22:59 300 mg
Q48H SAROJ Administration
Venlafaxine HCl 150 mg 05/12/24 01:36 05/12/24 02:16
Venlafaxine 150 Mg Extended Release Capsule PO 06/09/24 01:35 150 mg
Q48H SAROJ Administration
Home Medications
-
Home Medications
ascorbic acid (vitamin C) 500 mg tablet (Vitamin C) 500 mg PO DAILY Supplement 05/11/24
aspirin 81 mg chewable tablet 81 mg PO DAILY Blood Clot Prevention/Tx 05/11/24
twnytsk-bkycrcninfmqv-sewhqpip 250 mg-250 mg-65 mg tablet (Excedrin Migraine) 2 tab PO Q6HPRN PRN migraine 05/11/24
cefuroxime axetil 500 mg tablet 500 mg PO Q12H Infection 05/11/24
cholecalciferol (vitamin D3) 25 mcg (1,000 unit) tablet (Vitamin D3) 25 mcg PO DAILY Supplement 05/11/24
levothyroxine 100 mcg tablet 100 mcg PO DAILY Thyroid 05/11/24
naproxen sodium 220 mg tablet (Aleve) 440 mg PO BIDPRN PRN mild pain 05/11/24
omeprazole 40 mg capsule,delayed release 40 mg PO NOON Gastrointestinal Issue 05/11/24
polyethylene glycol 3350 17 gram oral powder packet (Miralax) 17 g PO DAILYPRN PRN constipation 05/11/24
venlafaxine 150 mg capsule,extended release 24 hr 150 mg PO Q48H Mental Health/Anxiety 05/11/24
venlafaxine 150 mg capsule,extended release 24 hr 300 mg PO Q48H Mental Health/Anxiety 05/11/24
--- NOTE | 2024-05-13 15:20 | PTOTSP ---
Speech Language Pathology
Pt seen for speech/language evaluations. Mild dysarthria noted. Language evaluated via the Quick Aphasia Battery (QAB), form 1. Pt with an overall score of 9.82, indicative of skills WNL.
Pt also seen for clinical bedside swallow evaluation. Pt reported baseline occasional globus sensation with solids, no worse since admission. P.O. trials of regular solids and thin liquids provided. Slightly prolonged mastication noted, suspect
secondary to dentition. No overt signs of aspiration.
Recommend:
(1) Regular solids/thin liquids
(2) General aspiration precautions
(3) Meds as tolerated
(4) RETAIL FIELD REPRESENTATIVE to follow for dysarthria tx and therapeutic reassessment of cognitive abilities
[2024-05-13] MEDS: LIPITOR 40 MG PO (17:02)
--- NOTE | 2024-05-13 22:03 | PTCARENOTE ---
Orthostatic VS lying and sitting only, pt unable to stand d/t right sided weakness.
[2024-05-14] VITALS (7 sets, daily range): BP systolic 115–149; BP diastolic 70–88; PULSE 85–87; O2SAT 93; BMI 28.7
[2024-05-14] MEDS: EFFEXOR XR 150 MG PO (01:31)
[2024-05-14 05:48] LABS: % Eosinophils 4.3 % (0-6); % Immature Granulocytes 0.2 % (0-0.5); % Lymphocytes 30.6 % (20.5-51.1); % Neutrophils 55.9 % (42.2-75.2); Absolute Basophils 0.1 10^3/uL (0-0.2); Absolute Eosinophils 0.4 10^3/uL (0-0.7); Absolute Lymphocytes 2.5 10^3/uL (1.2-3.4); Absolute Monocytes 0.7 10^3/uL (0.1-0.6); Absolute Neutrophils 4.6 10^3/uL (1.4-6.5); Hematocrit 38.7 % (37.0-47.0); Hemoglobin 12.4 g/dL (12.0-16.0); Mean Corpuscular Hgb 27.2 pg (27.0-31.0); Mean Corpuscular Volume 84.9 fL (81.0-99.0); Mean Platelet Volume 9.6 fL (7.4-10.4); Nucleated Red Blood Cells % 0 %; Platelet Count 303 10^3/uL (130-400); Red Blood Cell Count 4.56 10^6/uL (4.20-5.40); Red Cell Dist. Width 14.3 % (11.5-14.5); White Blood Cell Count 8.2 10^3/uL (4.8-10.8)
[2024-05-14 06:04] LABS: Blood Urea Nitrogen 23 mg/dl (7-17); Calcium 8.8 mg/dl (8.4-10.2); Carbon Dioxide 24 mmol/L (22-30); Chloride 104 mmol/L (98-107); Estimated Creatinine Clearance 49 ml/min; Glucose 100 mg/dl (70-99); Potassium 4.1 mmol/L (3.5-5.1); Sodium 141 mmol/L (135-145); eGFR > 60.00
[2024-05-14] MEDS: SYNTHROID 100 MCG PO (08:17)
[2024-05-14] MEDS: LOW STRENGTH ASPIRIN 81 MG PO (08:17)
[2024-05-14] MEDS: TOPAMAX 25 MG PO ×2 (08:17→21:00)
--- NOTE | 2024-05-14 12:20 | W.PN.HOSP.TC ---
Today's Communication/Plan
-
monitor vitals
see plan
cw aspirin
plavix stopped by neurology
dc planning
pt/ot
Discussed with daughter over the phone
Assessment / Plan
Assessment / Plan
General: Other (79y F in no acute distress.)
HEENT: Other (Dry MM. PERRLA)
Respiratory: Clear; No Wheezes, Rales or Rhonchi
Cardiac: S1/S2, Regular Rhythm and Murmur (II/ YOKO)
GI: Soft, Non Tender, Non Distended and Normal Bowel Sounds
Musculoskeletal:Other (LLE edema - chronic per patient.)
Neuro: AO x 3 and Other (RUE weakness compared to the Left)
Right-sided weakness suspect secondary to Acute/Subacute CVA
- Acuity of her symptoms is not at all clear - certainly many chronic issues contributing to this presentation.
MRI brain with acute/subacute CVA
CT with old CVA
- PT / OT evaluations rec SNF
- Neurology following
- Follow for any new / worsening deficits.
- Continue ASA; neurology rec to dc plavix given NIH score
A1C 5.8
holter outpatient
Elevated BP
- No known history of hypertension / hypertensive medications.
- IV hydralazine prn for now for very high BP.
- If BP is persistently elevated, would benefit from oral regimen. now BP normal
Hypothyroidism
TSH 1.5
- Continue current dose of T4 supplementation for now and adjust as needed.
prediabetes
a1c 5.8; monitor
Anxiety / Depression
- Continue current dose of venlafaxine for now.
Sinus Infection
- Would hold further abx treatment for now.
- Monitor for any fever or other new / worsening symptoms.
- Nasal irrigation as an outpatient may be beneficial.
History of tension headache
Patient took Excedrin at home, plan to wean Excedrin. Neurology started topiramate. Titrate Topamax by 25 mg every 3-5 days to target dose of 50 mg twice daily as tolerated
DVT Prophylaxis: SCDs,heparin
Code Status: Full
I spent a total of 52 minutes with the patient or on the floor. More than 50% of this time involved counseling and coordination of care.
Anticipated Discharge: Within 24 hours
Subjective/Interval History
-
Date of Service: May 14, 2024
denies pain
Objective Data
-
Labs:
Laboratory Results
05/14/24
04:28
WBC 8.2
Hgb 12.4
Hct 38.7
Plt Count 303
Sodium 141
Potassium 4.1
Chloride 104
Carbon Dioxide 24
BUN 23 H
Creatinine 0.7
Glucose 100 H
Calcium 8.8
Vital Signs:
Vital Signs
Temp Pulse Resp BP Pulse Ox
98.5 F 75 18 118/81 96
05/14/24 08:00 05/14/24 08:00 05/14/24 08:00 05/14/24 08:00 05/14/24 08:00
I&O
05/13/24 05/14/24 05/15/24
06:59 06:59 06:59
Intake Total 1200 / 1200 1080 / 1080
Output Total 250 / 250
Balance 950 / 950 1080 / 1080
--- NOTE | 2024-05-14 13:11 | CM ---
Addendum entered by Abbi Lennon 05/14/24 15:46:
[employer] Pending Auth # [id number]
[employer]
Clinicals faxed to # [phone]
Auth pending clinical review
Plan: Discharge on Friday to [facility] pending AUTH approval
Report # [id number]

Addendum entered by Abbi Lennon 05/14/24 14:43:
[facility] called; they do not accept [employer]
Plan: Discharge on Friday to [facility] pending AUTH approval
Original Note:
Possible DC over the weekend
Plan: discharge to SNF pending bed availability and AUTH approval
Spoke with patient's daughter, Debra, via phone #[phone]; provided referral status update:
[facility] does not accept [employer];
[facility] no beds available;
[facility] no beds now; may have one the beginning of next week;
[facility] Admission Coordinator will get back to me after she reviews referral;
Left a voice mail for [facility]
[2024-05-14] MEDS: HEPARIN 5000 UNITS SC ×2 (16:32→23:34)
[2024-05-14] MEDS: LIPITOR 40 MG PO (16:38)
[2024-05-14] MEDS: EFFEXOR XR 300 MG PO (21:00)
[2024-05-14] MEDS: TYLENOL 650 MG PO (23:33)
[2024-05-15] VITALS (7 sets, daily range): BP systolic 102–135; BP diastolic 59–88; PULSE 80–121; O2SAT 96; BMI 28.9
[2024-05-15 06:53] LABS: % Basophils 0.9 % (0-2); % Eosinophils 3.7 % (0-6); % Immature Granulocytes 0.2 % (0-0.5); % Lymphocytes 30.6 % (20.5-51.1); % Monocytes 7.6 % (1.7-9.3); Absolute Basophils 0.1 10^3/uL (0-0.2); Absolute Eosinophils 0.4 10^3/uL (0-0.7); Absolute Lymphocytes 2.9 10^3/uL (1.2-3.4); Absolute Monocytes 0.7 10^3/uL (0.1-0.6); Absolute Neutrophils 5.4 10^3/uL (1.4-6.5); Hematocrit 39.3 % (37.0-47.0); Hemoglobin 12.5 g/dL (12.0-16.0); Mean Corp Hgb Conc. 31.8 g/dL (33.0-37.0); Mean Corpuscular Hgb 26.9 pg (27.0-31.0); Mean Corpuscular Volume 84.7 fL (81.0-99.0); Mean Platelet Volume 9.5 fL (7.4-10.4); Nucleated Red Blood Cells % 0 %; Platelet Count 309 10^3/uL (130-400); Red Blood Cell Count 4.64 10^6/uL (4.20-5.40); Red Cell Dist. Width 14.2 % (11.5-14.5); White Blood Cell Count 9.5 10^3/uL (4.8-10.8)
[2024-05-15 07:12] LABS: Blood Urea Nitrogen 26 mg/dl (7-17); Calcium 8.8 mg/dl (8.4-10.2); Carbon Dioxide 22 mmol/L (22-30); Chloride 105 mmol/L (98-107); Estimated Creatinine Clearance 49 ml/min; Glucose 92 mg/dl (70-99); Potassium 4.4 mmol/L (3.5-5.1); Sodium 140 mmol/L (135-145); eGFR > 60.00
[2024-05-15] MEDS: LOW STRENGTH ASPIRIN 81 MG PO (08:44)
[2024-05-15] MEDS: HEPARIN 5000 UNITS SC ×2 (08:44→16:22)
[2024-05-15] MEDS: TOPAMAX 25 MG PO ×2 (08:44→20:10)
[2024-05-15] MEDS: SYNTHROID 100 MCG PO (08:44)
--- NOTE | 2024-05-15 11:18 | W.PN.HOSP.TC ---
Today's Communication/Plan
-
Monitor vitals
See plan
PT/OT
Holter monitor outpatient
Continue with aspirin
Hopeful DC tomorrow if has placement and auth pending per CM
Assessment / Plan
Assessment / Plan
General: Other (79y F in no acute distress.)
HEENT: Other (Dry MM. PERRLA)
Respiratory: Clear; No Wheezes, Rales or Rhonchi
Cardiac: S1/S2, Regular Rhythm and Murmur (II/ YOKO)
GI: Soft, Non Tender, Non Distended and Normal Bowel Sounds
Musculoskeletal:Other (LLE edema - chronic per patient.)
Neuro: AO x 3 and Right sided weakness and hemiparesis
Right-sided weakness suspect secondary to Acute/Subacute CVA
MRI brain with acute/subacute CVA
CT with old CVA
- PT / OT evaluations rec SNF
- Neurology following
- Follow for any new / worsening deficits.
- Continue ASA; neurology rec to dc plavix given NIH score
A1C 5.8
hol[address] outpatient with Dr Urias
Elevated BP on admission
- No known history of hypertension / hypertensive medications.
- IV hydralazine prn for now; hasnt required
- If BP is persistently elevated, would benefit from oral regimen. now BP normal
Hypothyroidism
TSH 1.5
- Continue current dose of T4 supplementation for now and adjust as needed.
prediabetes
a1c 5.8; monitor
Anxiety / Depression
- Continue current dose of venlafaxine for now.
Sinus Infection
now resolved
- Would hold further abx treatment for now.
- Monitor for any fever or other new / worsening symptoms.
- Nasal irrigation as an outpatient may be beneficial.
History of tension headache
Patient took Excedrin at home, plan to wean Excedrin. Neurology started topiramate. Titrate Topamax by 25 mg every 3-5 days to target dose of 50 mg twice daily as tolerated
DVT Prophylaxis: SCDs,heparin
Code Status: Full
Anticipated Discharge: Within 24 hours
Subjective/Interval History
-
Date of Service: May 15, 2024
denies nausea
Objective Data
-
Labs:
Laboratory Results
05/15/24
05:43
WBC 9.5
Hgb 12.5
Hct 39.3
Plt Count 309
Sodium 140
Potassium 4.4
Chloride 105
Carbon Dioxide 22
BUN 26 H
Creatinine 0.7
Glucose 92
Calcium 8.8
Vital Signs:
Vital Signs
Temp Pulse Resp BP Pulse Ox
98.7 F 82 16 126/62 91
05/15/24 11:00 05/15/24 11:00 05/15/24 11:00 05/15/24 11:00 05/15/24 11:00
I&O
05/14/24 05/15/24 05/16/24
06:59 06:59 06:59
Intake Total 1080 / 1080 720 / 720
Balance 1080 / 1080 720 / 720
--- NOTE | 2024-05-15 12:12 | CM ---
Addendum entered by Dahiana Del Castillo RN 05/15/24 14:32:
Retrieved message from [place] [facility] Nevin Araujo was approved for [facility] from 05/16/24 to 05/19/24 Reference # [id number] .Auth [id number] NRD to Jenny Erick fax [phone] . Phone number [phone].
CM assigned notified.
Addendum entered by Anali Montiel 05/15/24 13:37:
CM updated daughter via phone, awaiting auth.
Original Note:
Patient seen at bedside. Patient nursing assisting with hair care. Patient plan is for SNF awaiting auth from [employer]. CM will continue to follow for discharge planning needs.
Plan; SNF; pending auth
[2024-05-15] MEDS: LIPITOR 40 MG PO (17:05)
[2024-05-15] MEDS: TYLENOL 650 MG PO (17:08)
[2024-05-15] MEDS: EFFEXOR XR 150 MG PO (22:14)
[2024-05-16] VITALS (7 sets, daily range): BP systolic 84–152; BP diastolic 57–86; PULSE 83–188
[2024-05-16] MEDS: HEPARIN 5000 UNITS SC ×4 (00:09→23:57)
[2024-05-16 04:55] LABS: % Basophils 0.7 % (0-2); % Immature Granulocytes 0.4 % (0-0.5); % Lymphocytes 35.5 % (20.5-51.1); % Monocytes 7.2 % (1.7-9.3); % Neutrophils 52.2 % (42.2-75.2); Absolute Basophils 0.1 10^3/uL (0-0.2); Absolute Eosinophils 0.3 10^3/uL (0-0.7); Absolute Lymphocytes 2.7 10^3/uL (1.2-3.4); Absolute Monocytes 0.5 10^3/uL (0.1-0.6); Absolute Neutrophils 3.9 10^3/uL (1.4-6.5); Hemoglobin 12.6 g/dL (12.0-16.0); Mean Corp Hgb Conc. 32.3 g/dL (33.0-37.0); Mean Corpuscular Volume 83.5 fL (81.0-99.0); Mean Platelet Volume 9.6 fL (7.4-10.4); Nucleated Red Blood Cells % 0 %; Platelet Count 297 10^3/uL (130-400); Red Blood Cell Count 4.67 10^6/uL (4.20-5.40); Red Cell Dist. Width 13.8 % (11.5-14.5); White Blood Cell Count 7.5 10^3/uL (4.8-10.8)
[2024-05-16 05:15] LABS: Blood Urea Nitrogen 24 mg/dl (7-17); Calcium 8.7 mg/dl (8.4-10.2); Carbon Dioxide 24 mmol/L (22-30); Chloride 104 mmol/L (98-107); Estimated Creatinine Clearance 49 ml/min; Glucose 101 mg/dl (70-99); Potassium 4.1 mmol/L (3.5-5.1); Sodium 139 mmol/L (135-145); eGFR > 60.00
[2024-05-16] MEDS: LOW STRENGTH ASPIRIN 81 MG PO (07:38)
[2024-05-16] MEDS: TOPAMAX 25 MG PO ×2 (07:39→20:16)
[2024-05-16] MEDS: SYNTHROID 100 MCG PO (07:39)
--- NOTE | 2024-05-16 08:30 | CM ---
Addendum entered by Anali Montiel 05/16/24 12:22:
physician plan to hold discharge for today as patient with further concerns. CM will update facility.
Addendum entered by Anali Montiel 05/16/24 09:39:
Patient daughter updated and will be here to complete IMM and pack up the room for patient. Daughter plans to follow ambulance to facility.
Original Note:
CM called to admissions Liaison Lisbet and auth provided. CM then called to SNF and provided auth information to [facility]. Per [facility] nursing to call report to [phone] and fax [phone]. CM will update physician and patient daughter. Await
time for ambulance transfer. CM will continue to follow for discharge planning needs.
Plan; transfer to SNF
--- NOTE | 2024-05-16 10:06 | PTCARENOTE ---
Addendum entered by Jessica Pennington RN 05/16/24 17:45:
Patient noted to have a right sided facial droop and an NIH score of 9. Neurologist, Dr. Borrero notified.
Original Note:
Patient noted to have no movement from right arm or right leg. NIH at this time 8. Prior NIH was 5. Dr. Wynn notified and ordered stat head CT and cancelled discharge at this time.
--- NOTE | 2024-05-16 11:21 | W.PN.HOSP.TC ---
Today's Communication/Plan
-
Monitor vital signs see plan
Stat CT scan without hemorrhagic conversion, evolving CVA. Discussed with neurology who ordered repeat MRI.
Continue to monitor neurological checks
Cancel DC for today
cw aspirin
Assessment / Plan
Assessment / Plan
General: Other (79y F in no acute distress.)
HEENT: Other (Dry MM. PERRLA)
Respiratory: Clear; No Wheezes, Rales or Rhonchi
Cardiac: S1/S2, Regular Rhythm and Murmur (II/ YOKO)
GI: Soft, Non Tender, Non Distended and Normal Bowel Sounds
Musculoskeletal:Other (LLE edema - chronic per patient.)
Neuro: AO x 3 and Right sided weakness and hemiparesis
Right-sided hemiparesis suspect secondary to Acute/Subacute CVA
MRI brain with acute/subacute CVA
05/16 with mild increase in NIH; stat CT Evolving left parietal lobe subacute infarct without hemorrhagic transformation.
- PT / OT evaluations rec SNF. Discharge cancelled today 2/2 worsening NIH with right sided weakness. Stat CT without hemorrhagic conversion. Evolving CVA. Discussed with neurology and they recommended repeat MRI.
- Neurology following
CTA with minimal calcified plaque within each carotid bulb. 60% stenosis of right carotid bulb. Less than 50% stenosis on left carotid bulb
- Continue ASA; neurology rec to dc plavix given NIH score
A1C 5.[address] outpatient with Dr Urias
Elevated BP on admission
- No known history of hypertension / hypertensive medications.
- IV hydralazine prn for now; hasnt required
- If BP is persistently elevated, would benefit from oral regimen. now BP normal
Hypothyroidism
TSH 1.5
- Continue current dose of T4 supplementation for now and adjust as needed.
prediabetes
a1c 5.8; monitor
Anxiety / Depression
- Continue current dose of venlafaxine for now.
Sinus Infection
now resolved
- Would hold further abx treatment for now.
- Monitor for any fever or other new / worsening symptoms.
- Nasal irrigation as an outpatient may be beneficial.
History of tension headache
Patient took Excedrin at home, plan to wean Excedrin. Neurology started topiramate. Titrate Topamax by 25 mg every 3-5 days to target dose of 50 mg twice daily as tolerated
DVT Prophylaxis: SCDs,heparin
Code Status: Full
I spent a total of 52 minutes with the patient or on the floor. More than 50% of this time involved counseling and coordination of care.
Anticipated Discharge: 24 - 48 hours
Subjective/Interval History
-
Date of Service: May 16, 2024
denies pain
Objective Data
-
Labs:
Laboratory Results
05/16/24
04:26
WBC 7.5
Hgb 12.6
Hct 39.0
Plt Count 297
Sodium 139
Potassium 4.1
Chloride 104
Carbon Dioxide 24
BUN 24 H
Creatinine 0.7
Glucose 101 H
Calcium 8.7
Vital Signs:
Vital Signs
Temp Pulse Resp BP Pulse Ox
98.0 F 77 14 142/82 97
05/16/24 07:05 05/16/24 07:05 05/16/24 07:05 05/16/24 07:05 05/16/24 07:05
I&O
05/15/24 05/16/24 05/17/24
06:59 06:59 06:59
Intake Total 720 / 720 660 / 660
Balance 720 / 720 660 / 660
[2024-05-16] MEDS: ATIVAN 1 MG PO (13:18)
[2024-05-16] MEDS: LIPITOR 40 MG PO (17:05)
[2024-05-16] MEDS: EFFEXOR XR 300 MG PO (21:14)
[2024-05-16] MEDS: MIRALAX 17 GRAMS PO (23:58)
[2024-05-17 02:32] VITALS: BP 134/80
[2024-05-17 05:33] VITALS: BMI 29.2
[2024-05-17 06:36] LABS: % Basophils 0.6 % (0-2); % Eosinophils 2.4 % (0-6); % Immature Granulocytes 0.5 % (0-0.5); % Lymphocytes 25.2 % (20.5-51.1); % Monocytes 7.8 % (1.7-9.3); % Neutrophils 63.5 % (42.2-75.2); Absolute Basophils 0.1 10^3/uL (0-0.2); Absolute Eosinophils 0.2 10^3/uL (0-0.7); Absolute Immature Granulocytes 0.1 10^3/uL (0-0.05); Absolute Lymphocytes 2.5 10^3/uL (1.2-3.4); Absolute Monocytes 0.8 10^3/uL (0.1-0.6); Absolute Neutrophils 6.3 10^3/uL (1.4-6.5); Hematocrit 41.2 % (37.0-47.0); Mean Corp Hgb Conc. 31.6 g/dL (33.0-37.0); Mean Corpuscular Hgb 26.6 pg (27.0-31.0); Mean Corpuscular Volume 84.3 fL (81.0-99.0); Mean Platelet Volume 9.9 fL (7.4-10.4); Nucleated Red Blood Cells % 0 %; Platelet Count 336 10^3/uL (130-400); Red Blood Cell Count 4.89 10^6/uL (4.20-5.40); Red Cell Dist. Width 13.5 % (11.5-14.5); White Blood Cell Count 9.9 10^3/uL (4.8-10.8)
[2024-05-17 07:01] LABS: Blood Urea Nitrogen 27 mg/dl (7-17); Calcium 8.9 mg/dl (8.4-10.2); Carbon Dioxide 20 mmol/L (22-30); Chloride 102 mmol/L (98-107); Estimated Creatinine Clearance 43 ml/min; Glucose 102 mg/dl (70-99); Potassium 4.4 mmol/L (3.5-5.1); Sodium 138 mmol/L (135-145); eGFR > 60.00
[2024-05-17 07:42] VITALS: BP 120/77; BP 126/81; PULSE 80; PULSE 89
[2024-05-17] MEDS: SYNTHROID 100 MCG PO (08:23)
[2024-05-17] MEDS: TOPAMAX 25 MG PO (08:23)
[2024-05-17] MEDS: HEPARIN 5000 UNITS SC (08:23)
[2024-05-17] MEDS: LOW STRENGTH ASPIRIN 81 MG PO (08:23)
--- NOTE | 2024-05-17 09:19 | W.PN.HOSP.TC ---
Today's Communication/Plan
-
d/c
Assessment / Plan
Assessment / Plan
Gen: NAD, Awake and laert
Eyes: EOMI, PERRLA, no scleral icterus.
Neck: supple.
CV: RRR, +S1/S2, no m/r/g.
Resp: CTAB, no rales, wheezes, or rhonchi.
Abd: +BS, soft, NT, ND
Skin: No rashes.
Neuro: CN 2-12 intact, R-hemiparesis
Psych: Normal mood and affect.
MRI brain 05/12/24: 2.0 cm nonhemorrhagic acute/subacute infarct involving the left periventricular centrum semiovale region.
MRI brain 05/16/24: Slightly increased size of the restricted diffusion within the left periventricular white matter extending into the posterior aspect of the left putamen consistent with evolving known acute infarction. There is no evidence of
acute hemorrhagic transformation.
CTA head/neck: No evidence of large vessel occlusion, or arterial dissection. Minimal calcified plaque within each carotid bulb. 60% stenosis of the right carotid bulb, and less than 50% stenosis of the left carotid bulb.
Right-sided hemiparesis due to nonhemorrhagic acute/subacute infarct involving the left periventricular centrum semiovale region:
-imaging above
-neuro saw in c/s
-cont ASA/statin as per neuro
-a1c 5.8%
-outpt holter with Dr Urias
Other problems:
Elevated BP on admission, resolved
Hypothyroidism: cont Levoxyl
Anxiety/Depression: cont Effexor XR
h/o tension headache: Topamax started, Titrate Topamax by 25 mg every 3-5 days to target dose of 50 mg twice daily as tolerated
FULL/heparin
Medically cleared for discharge. Case management aware.
Anticipated Discharge: Today
Subjective/Interval History
-
Date of Service: May 17, 2024
Objective Data
-
Labs:
Laboratory Results
05/17/24
04:39
WBC 9.9
Hgb 13.0
Hct 41.2
Plt Count 336
Sodium 138
Potassium 4.4
Chloride 102
Carbon Dioxide 20 L
BUN 27 H
Creatinine 0.8
Glucose 102 H
Calcium 8.9
Vital Signs:
Vital Signs
Temp Pulse Resp BP Pulse Ox
98.1 F 80 18 126/81 96
05/17/24 07:42 05/17/24 07:42 05/17/24 07:42 05/17/24 07:42 05/17/24 07:42
I&O
05/16/24 05/17/24 05/18/24
06:59 06:59 06:59
Intake Total 660 / 660 980 / 980
Output Total 425 / 425
Balance 660 / 660 555 / 555
--- NOTE | 2024-05-17 10:47 | CM ---
Addendum entered by Catarina Robin 05/17/24 11:09:
Transport at 1200 - Daughter Debra and Lisbet at [facility] made aware
Original Note:
Pt medically ready for discharge today
Spoke with Lisbet at [facility] - can accept today
Auth info previously provided to [facility]
05/16/24 to 05/19/24 Reference # [id number] .Auth [id number] NRD to Jenny Suarez fax [phone] . Phone number [phone]
Called pts daughter Debra - updated regarding pt ready for discharge today - plan to transfer to [facility]
Discussed IMM
Transport to be arranged
Plan - transfer to [facility]
- [phone]
- [phone]
[2024-05-17 11:15] VITALS: BP 117/70
--- NOTE | 2024-05-17 11:27 | PTOTSP ---
ST Follow-Up/Re-Evaluation
Background Information:
- Pt lives in an apartment with her son (60s; hurt at work; disabled).
- Right handed
- Does not drive at baseline.
- Dependent on son for groceries and cooking.
- Independent with leaning, laundry, and finances.
- Independent with medications but admits she forgets them at times - son does not know she needs help with recall.
- Prior to arrival, no difficulties with speech/communication, but some difficulties with memory over the past year or so.
- Pt admits to having difficulties hearing but no use of hearing aids.
- Pt wears glasses for reading.
- Pt's highest level of education is 10th grade.
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
- Pt's mother had dementia that was dx in her 60s.
- Pt enjoys spending time with her friends, playing with her cats, watching TV, and ordering things from [employer].
Clinical Observations:
- Pt presents with a low volume, weak/breathy vocal quality.
- Pt has adequate recall of events prior to arrival.
- Pt with mildly reduced rate of speech and slow language formulation today (likely new since initial CHIP LOFT WORKER evaluation).
- Pt needs MODA prompting for elaborating on stories
- Pt with good recall of dx but fair insight to effects of dx.
- Pt observed to be hearing impaired - needed intermittent repetitions of information, only occasionally requested by patient.
Formal Assessment:
The pt's cognitive linguistic function was assessed with the MOCA. Pt received a score of 16/30, which is indicative of at least a moderate cognitive linguistic impairment.
Findings:
Pt currently presents with mild dysarthria (i.e., low vocal volume, weak/breathy vocal quality, imprecise articulation), mild expressive language deficits (i.e., reduced rate of speech, slow language formulation, reduced verbal elaboration), as well
as moderate cognitive linguistic deficits (e.g. impaired registration of information, impaired recall of information, impaired language abstraction, impaired executive functioning, and impaired visuospatial skills).
Recommendations:
- Would continue with current diet consistencies (regular solids, thin liquids, meds as tolerated) as well as monitor PO intake in the setting of evolving CVA; maintain general aspiration precautions.
- CHIP LOFT WORKER to f/u re: tx of speech, language, and cognitive linguistic deficits.
- Pt would benefit from continued CHIP LOFT WORKER services upon d/c at the acute rehab level of care.
--- NOTE | 2024-05-17 15:46 | W.DCSUMMARY ---
Discharge Summary
Discharge Data
Date of Admission: 05/12/24
Date of Discharge: 05/17/24
-
Pending Results: No
Hospital Course
Primary diagnoses:
Right-sided hemiparesis due to nonhemorrhagic acute/subacute infarct involving the left periventricular centrum semiovale region
Secondary diagnoses:
Elevated BP on admission, resolved
Hypothyroidism: cont Levoxyl
Anxiety/Depression: cont Effexor XR
h/o tension headache
Consultants:
Neurology
Imaging:
MRI brain 05/12/24: 2.0 cm nonhemorrhagic acute/subacute infarct involving the left periventricular centrum semiovale region.
MRI brain 05/16/24: Slightly increased size of the restricted diffusion within the left periventricular white matter extending into the posterior aspect of the left putamen consistent with evolving known acute infarction. There is no evidence of
acute hemorrhagic transformation.
CTA head/neck: No evidence of large vessel occlusion, or arterial dissection. Minimal calcified plaque within each carotid bulb. 60% stenosis of the right carotid bulb, and less than 50% stenosis of the left carotid bulb.
Echo: Normal left ventricular chamber size. Normal left ventricular systolic
function. Left ventricular ejection fraction is 65%. Normal regional wall
motion. Normal left ventricular wall thickness.
Normal right ventricular size and function.
Aortic sclerosis without stenosis.
Compared to the previous echo 09/30/2022, there is no significant change.
Hospital course: 79-year-old female who presented with chief complaint of right-sided weakness as outlined in the H&P done on admission. Imaging above, patient was found to have a nonhemorrhagic acute/subacute infarct involving the left
periventricular centrum semiovale region. Patient was seen in consultation by neurology. Patient was initially placed on aspirin and Plavix but neurology recommended stopping Plavix given the patient's NIH score. Outpatient Holter monitor will be
arranged for the patient via Dr. Urias's office. Of note the patient was started on Topamax for tension headaches.
Discharge Plan
-
Patient Disposition: Snf/SNF
Discharge Diagnosis/Procedures: Right-sided hemiparesis due to nonhemorrhagic acute/subacute infarct involving the left periventricular centrum semiovale region
Diet: Low Cholesterol
Activity: With assistance and As tolerated
Driving Restrictions: No driving
Bathing Restrictions: None
Other Services: PT and OT
Activity Restrictions/Additional Instructions:
Follow with cardiology for Holter monitor
Referrals:
Rom Urias MD [Active] -
Rona Wilson DO [Family Provider] - in less than 1 week
Prescriptions:
New
atorvastatin 40 mg Tablet
40 mg PO QPM Qty: 0 0RF
topiramate 25 mg Tablet
25 mg PO BID Qty: 1 0RF
Continued
polyethylene glycol 3350 [Miralax] 17 gram Powder In Packet
17 g PO DAILYPRN PRN (Reason: constipation)
venlafaxine 150 mg Capsule,Extended Release 24hr
300 mg PO Q48H
venlafaxine 150 mg Capsule,Extended Release 24hr
150 mg PO Q48H
omeprazole 40 mg Capsule,Delayed Release(Dr/Ec)
40 mg PO NOON
levothyroxine 100 mcg Tablet
100 mcg PO DAILY
ascorbic acid (vitamin C) [Vitamin C] 500 mg Tablet
500 mg PO DAILY
aspirin 81 mg Tablet,Chewable
81 mg PO DAILY
cholecalciferol (vitamin D3) [Vitamin D3] 25 mcg (1,000 unit) Tablet
25 mcg PO DAILY
Discontinued
naproxen sodium [Aleve] 220 mg Tablet
440 mg PO BIDPRN PRN (Reason: mild pain)
cefuroxime axetil 500 mg Tablet
500 mg PO Q12H
Excedrin Migraine 250-250-65 mg Tablet
2 tab PO Q6HPRN PRN (Reason: migraine)
Discharge Orders:
Discharge Patient (As Directed); Ordered 05/17/24
Ordered By: Hermelindo May
Discharge Date and Time
Discharge Date/Time: 05/17/24 12:00
Print Language: FRISIAN
== END 2024-05-17 12:00 | DRG 65 ==
LOC: 2 SOUTH 13:30
PROVIDERS: Internal Medicine; ADMITTING PHYSICIAN Hospitalist; ATTENDING PHYSICIAN Internal Medicine; CONSULT PHYSICIAN Psychiatry & Neurology Neurology; EMERGENCY PHYSICIAN Emergency Medicine; FAMILY PHYSICIAN Family Medicine
DX: I63.9 Cerebral infarction, unspecified (principal); G81.91 Hemiplegia, unspecified affecting right dominant side; Z87.891 Personal history of nicotine dependence; E03.9 Hypothyroidism, unspecified; F32.A Depression, unspecified; F41.9 Anxiety disorder, unspecified; J32.9 Chronic sinusitis, unspecified; G44.209 Tension-type headache, unspecified, not intractable; I69.393 Ataxia following cerebral infarction
CPT/HCPCS: 70450; 70496; 70498; 70551; 80048; 80053; 80061; 80306; 82607; 83036; 83735; 84443; 85025; 85027; 85652; 86140; 92507; 92523; 92610; 93005; 93306; 97110; 97112; 97163; 97167; 97530; 99285; Q9967

== ENCOUNTER 2025-04-25 22:35 | Inpatient (IN) | payer OTHER, SELFPAY ==
[2025-04-25] VITALS (7 sets, daily range): BP systolic 106–159; BP diastolic 63–90; BMI 23.9
[2025-04-25 16:28] LABS: Hematocrit 37.6 % (37.0-47.0); Hemoglobin 12.0 g/dL (12.0-16.0); Mean Corp Hgb Conc. 31.9 g/dL (33.0-37.0); Mean Corpuscular Volume 78.5 fL (81.0-99.0); Nucleated Red Blood Cells % 0 %; Platelet Count 349 10^3/uL (130-400); Red Cell Dist. Width 14.4 % (11.5-14.5)
[2025-04-25 16:40] LABS: ALT (SGPT) 20 U/L (0-35); AST (SGOT) 25 U/L (14-36); Albumin 3.7 g/dl (3.5-5.0); Alkaline Phosphatase 112 U/L (38-126); Blood Urea Nitrogen 16 mg/dl (7-17); Calcium 8.7 mg/dl (8.4-10.2); Carbon Dioxide 26 mmol/L (22-30); Chloride 104 mmol/L (98-107); Glucose 122 mg/dl (70-99); Potassium 4.3 mmol/L (3.5-5.1); Sodium 136 mmol/L (135-145); Total Protein 7.9 g/dl (6.3-8.2); eGFR > 60.00
[2025-04-25 20:04] LABS: Urine Character Clear (Clear)
[2025-04-25 20:11] LABS: Urine White Cell 0-2 /HPF (0-5)
--- NOTE | 2025-04-25 20:47 | ED.GENMED ---
History of Present Illness
General
Chief Complaint: Urinary Symptoms
Source: patient and family (Daughter)
Time Seen by Provider: 04/25/25 19:21
History of Present Illness
History of Present Illness:
Patient complaining of mild dysuria frequency and general weakness. Is been treated for a UTI x 2 with doxycycline followed by cephalosporin. Found to be resistant to all outpatient antibiotics.
Past History
Past History
ED Past Medical History: Hypercholesterolemia, Hypothyroidism and Other (Migraines, Hiatel hernia, IBS, Diverticulosis); Negative Asthma, HTN or NIDDM
ED Past Surgical History: Gynecological (Hysterectomy) and Other (Bladder lift)
Social History
Tobacco: Former smoker
Alcohol: None
Personal:
Living: with family
Review of Systems
Review of Systems
All Other Systems: Not applicable
Constitutional: Denies fever
Respiratory: Reports no symptoms
Cardiac: Reports no symptoms
Phy Exam
Physical Exam
Physical Exam:
GENERAL: Alert and oriented in no apparent distress
EYE: Orbits normal.
NECK: Supple
CARDIAC: Regular rate and rhythm without any obvious murmurs.
LUNGS: Clear breath sounds,normal
ABDOMEN: Soft, without focal tenderness or distention. No CVA tenderness
NEUROLOGICAL: Alert and oriented , grossly non-focal
SKIN: Warm and dry, no rash or lesion, no discoloration, skin intact.
MUSCULOSKELETAL: No edema,no deformity.Good color
PSYCH: Normal and appropriate interaction.
Course
Orders/Labs/Results
Orders:
Orders
04/25/25 16:04
Complete Blood Count/With Diff Urgent
Comprehensive Metabolic Panel Urgent
04/25/25 19:35
IV Insert/Care/Rem.- Treatment PRN
Straight cath- Treatment ONCE
04/25/25 19:36
CT Abd/pel Without Iv Or Oral Urgent
Comment:
Reason For Exam: Resistant UTI
04/25/25 19:52
Urinalysis Reflex To Culture Urgent
Date Specimen was Collected: 04/25/25
Time Specimen was Collected: 19:39
Urine Microscopic Reflex Cult Urgent
Urine Culture Urgent
DERRICK Source: U
Specimen Description:
Date Specimen was Collected: 04/25/25
Time Specimen was Collected: 19:39
04/25/25 20:46
Meropenem [Merrem] 1,000 mg IV NOW STA
04/25/25 21:58
Admit/Transfer Patient As Directed
Co-Sign Provider:
Level of Care: Inpatient admission
Assign to:: Medical/Surgical
Physician / Group: Vinicius Dowell
Diagnosis: UTI, constipation
Reason for Hospitalization: UTI, constipation
Expected length of stay greater than two midnights?: Yes
ELOS- Estimated Length of Stay in days: 3
I certify the patient meets the requirements for IP care: Yes
04/25/25 21:59
PRN Pain Medication Management As Directed
May give lesser potent ordered pain med per pt: Yes
preference::
Protocol:: Medication orders for pain may be administered in a
manner that supports deferring to patient preference
when the pt is:
- Requesting an ordered lesser potent pain medication.
Least to most potent pain medications are defined
as: acetaminophen < NSAID < tramadol < opioids
(morphine, oxycodone, hydromorphone).
- Requesting a lesser dose of the same medication IF
ORDERED.
- Requesting a less intrusive route of administration
if both routes are prescribed by the provider (PO <
IV).
04/25/25 22:00
Code Status As Directed
Resuscitation Status: Full Code
04/26/25 01:05
Acetaminophen [Tylenol] 650 mg PO Q4HPRN PRN
Bisacodyl [Dulcolax] 10 mg RECTAL T48CMYO PRN
Docusate W/Senna [Senokot-S] 1 tablet PO BIDPRN PRN
Polyethylene Glycol Powder [Miralax] 17 grams PO DAILYPRN PRN
Polyethylene Glycol Powder [Miralax] 17 grams PO DAILYPRN PRN constipation
Trazodone [Desyrel] 50 mg PO HS
04/26/25 01:05
Activity As Directed
Activity Level: As Tolerated
Bladder Scan As Directed
Follow Bladder Retention/Intermittent Cath Algorithm?: Yes
PRN if no void in __ hours: 6
Frequency: Per Retention Algorithm
If Bladder Scan Result >: 400
then:: Straight cath
Straight Cath As Directed
Frequency: Per Retention Algorithm
Additional Instructions: straight cath as needed per acute urinary retention algorithm for 24 hrs
Additional Instructions: for bladder scan greater than 400 mL
Vital Signs As Directed
Frequency: Per unit guidelines
Weight As Directed
Frequency: Once
Comment: on admission
Pulse Ox/spot Check [RESP] Routine
Quantity: 1
DX Deep Vein Thrombosis Video Routine
04/26/25 Breakfast
Regular
At Your Request: Limited Participation
Levothyroxine [Synthroid] 75 mcg PO DAILY @ 0600
04/26/25 08:00
Cetirizine HCl [Zyrtec] 10 mg PO DAILY
Docusate Sodium [Colace] 100 mg PO BID
Heparin 5,000 units SC Q8
Meropenem [Merrem] 1,000 mg IV Q12
Topiramate [Topamax] 50 mg PO BID
Venlafaxine Extended Release [Effexor Xr] 150 mg PO Q48H
Venlafaxine Extended Release [Effexor Xr] 300 mg PO Q48H
04/26/25 12:00
Pantoprazole [Protonix] 40 mg PO NOON
04/26/25 18:00
Atorvastatin [Lipitor] 40 mg PO QPM
Abnormal Lab Results
04/25/25 04/25/25
16:04 19:52
MCV 78.5 L fL
(81.0-99.0)
MCH 25.1 L pg
(27.0-31.0)
MCHC 31.9 L g/dL
(33.0-37.0)
Eosinophils % 9.4 H %
(0-6)
Glucose 122 H mg/dl
(70-99)
Ur Occult Blood Reflex 3+ A
(Negative)
Urine RBC 3-6 A /HPF
(0-2)
Urine Bacteria (Reflex) Moderate A
(Negative)
Urine Albumin (Reflex) 1+ A
(Neg - Trace)
04/25/25 16:04
04/25/25 16:04
Vital Signs
Initial and Last Documented VS:
Initial Vital Signs
Temp Pulse Resp BP Pulse Ox
98.3 F 86 18 106/75 100
04/25/25 15:51 04/25/25 15:51 04/25/25 15:51 04/25/25 15:51 04/25/25 15:51
Last Documented Vital Signs
Temp Pulse Resp BP Pulse Ox
97.9 F 82 18 96/53 97
04/26/25 23:38 04/26/25 23:35 04/26/25 23:38 04/26/25 23:35 04/26/25 23:38
*Radiology
Radiology exam reviewed: radiology read reviewed (Stable CT)
*Pulse Oximetry
SaO2: 97
Oxygen Mode of Delivery: Room air
Patient hypoxic: no
*Critical Care Note
Total Time (30-74mins, 75-104mins- exclusive of procedures): Not Applicable
Update Note
Update Note:
No sensitivities to outpatient antibiotics. Reviewed with infectious disease. They recommend meropenem
ED Attending Note
-
Portions of this chart may have been created with voice recognition software.� Occasional wrong word or��sound alike� substitutions may have occurred due to the inherent limitations of voice recognition software.
Discharge Plan
Departure
Patient Disposition: Admit
Date of Disposition: 04/25/25
Time of Disposition: 20:47
Presentation/result/management discussed w/ accepting MD/DO: Hospitalist
Discharge Problem:
Resistant UTI/Proteus
Interventions
Interventions:
*General Assessment Last Done: 04/25/25 19:40
*Neglect/Abuse Screening Last Done: 04/25/25 19:40
*ED- Fall Risk Assessment Last Done: 04/25/25 19:40
*ED Influenza Vaccine History Last Done: 04/25/25 19:40
*Nursing Disposition Last Done: 04/25/25 23:54
ED-Female Genitourinary Assessment Last Done: 04/25/25 19:40
Discharge Date and Time
Discharge Date/Time: 04/25/25 23:54
[2025-04-25] MEDS: MERREM 1000 MG IV (20:55)
--- NOTE | 2025-04-25 21:17 | HPS.HSE ---
Addendum entered and electronically signed by Vinicius Dowell MD 04/25/25 22:47:
This is an addendum to H&P written by Steph Brock on 04/25/2025. �Patient seen and examined independently with VIOLIN TEACHER.
80-year-old female past medical history of prior CVA with right residual hemiparesis, hypothyroidism, anxiety/depression, migraines, hypercholesteremia, presenting with months of urinary burning and frequency as well as urine with inability to
completely void. �She has been treated with cefuroxime and doxycycline for 2 weeks without improvement. �She had urine culture 03/20 showing �Proteus mirabilis likely ESBL with 10,000-25,000 colony-forming units sensitive to meropenem.
Last BM 2 days ago.�
Vital signs unremarkable.
Labs unremarkable. �Urinalysis unimpressive.
CT abdomen pelvis shows completely posterior bladder, mild chronic bilateral renal disease. �Moderate to large amount of fecal material in the rectum.
Patient with ESBL Proteus UTI. �Meropenem started. �Bladder scan protocol.
Miralax for constipation.�
Original Note:
Family Physician
-
Family Physician: Rona Wilson
Chief Complaint
-
resistant UTI culture
History of Present Illness
Patient is a 80-year-old female with past medical history significant for hypothyroidism, anxiety/depression, GERD, chronic back pain and Meniere's disease who presented to [facility] ED for evaluation of urinary symptoms. Patient has been treated over
past few weeks for UTI with no improvement, she was told to come to the ED for evaluation related to resistant culture growth. Out patient urine culture from 04/19/2025 grew ESBL. Patient reports continued burning, frequency and inability to empty
bladder despite treatment. She notes lower abdominal pain that radiates around lower back and constipation with last BM 2 days ago. Denies fever, chills, cough, shortness of breath, chest pain, nausea or vomiting.
Medical History
Past Medical History
Past Medical History: Reports Other
Additional Past Medical History:
Hypothyroidism
Anxiety / Depression
GERD
Chronic Back Pain
Meniere's Disease
Past Surgical History: Reports Other
Additional Past Surgical History:
Hysterectomy
Bladder Repair
Social History
Tobacco: Non-smoker
Alcohol: None
Drug: None
Living: With Family
Family History
Family History: Not pertinent
Allergies / Home Medications
Allergies reflects when Allergies were last updated in [employer].
Home Medications with original date entered in [employer]
Allergy/Medication List:
Allergies
Allergy/AdvReac Type Severity Reaction Status Date / Time
ciprofloxacin (From Cipro) Allergy Unknown Verified 05/11/24 17:33
codeine (Codeine) Allergy Unknown Verified 05/11/24 17:33
nitrofurantoin (From Allergy Unknown Verified 05/11/24 17:33
Macrobid)
nitrofurantoin Allergy Unknown Verified 05/11/24 17:33
macrocrystalline (From
Macrobid)
Penicillins Allergy Unknown Verified 05/11/24 17:33
Sulfa (Sulfonamide Allergy Unknown Verified 05/11/24 17:33
Antibiotics)
Home Medications
omeprazole 40 mg capsule,delayed release 40 mg PO NOON Gastrointestinal Issue 05/11/24
polyethylene glycol 3350 17 gram oral powder packet (Miralax) 17 g PO DAILYPRN PRN constipation 05/11/24
venlafaxine 150 mg capsule,extended release 24 hr 150 mg PO Q48H Mental Health/Anxiety 05/11/24
venlafaxine 150 mg capsule,extended release 24 hr 300 mg PO Q48H Mental Health/Anxiety 05/11/24
atorvastatin 40 mg tablet 40 mg PO QPM #0 tabs 05/14/24
cetirizine 10 mg tablet 10 mg PO DAILY 04/25/25
levothyroxine 75 mcg tablet 75 mcg PO DAILY 04/25/25
topiramate 25 mg tablet 50 mg PO BID 04/25/25
trazodone 50 mg tablet 50 mg PO HS 04/25/25
Review of Systems
-
History Source: Patient
Constitutional: Denies Fever or Chills
EENT: Denies Sore Throat
Respiratory: Denies Cough, Hemoptysis or Trouble Breathing
Cardiac: Denies Chest Pain, Diaphoresis, Palpitations or Syncope
Abdomen/GI: Reports Abdominal Pain and Constipated; Denies Nausea, Vomiting or Diarrhea
: Reports Dysuria, Frequency, Difficulty Voiding and Urgency
Musculoskeletal: Denies Joint Pain
Skin: Denies Rash
Neurological: Denies Dizzy or Headache
Endocrine: Denies Polyuria or Polydipsia
Physical Exam
Vital Signs
Vital Signs
Temp Pulse Resp BP Pulse Ox
98.3 F 92 18 123/83 97
04/25/25 15:51 04/25/25 19:51 04/25/25 19:51 04/25/25 20:25 04/25/25 20:47
Physical Exam
General: Well Developed, Well Nourished, No Apparent Distress, Comfortable and Conversant
HEENT: NormoCephalic, Moist mucous membranes, PERRLA, Nose Appears Normal and Ears Appear Normal
Respiratory: Clear and Non Labored Respirations; No Wheezes, Rales or Rhonchi
Cardiac: S1/S2 and Regular Rhythm; No Murmur
GI: Soft, Non Tender, Non Distended and Normal Bowel Sounds
Musculoskeletal: No Clubbing, No Cyanosis and No Edema
Skin: Warm and IV/Catheter Site
Neuro: Awake, Alert and AO x 3
Psych: Calm
Laboratory Results
-
04/25/25 16:04
04/25/25 16:04
Laboratory Results
Total Bilirubin 0.3 mg/dl (0.2-1.3) 04/25/25 16:04
AST 25 U/L (14-36) 11/03/25 16:04
ALT 20 U/L (0-35) 04/25/25 16:04
Alkaline Phosphatase 112 U/L (38-126) 04/25/25 16:04
Data Reviewed
-
CT Scan: Report Reviewed by me (ABD/PEL: 1. Completely collapsed urinary bladder. 2. Mild chronic bilateral renal disease. 3. Severe calcific atherosclerotic plaque in the abdominal aorta. 4. Moderate to large amount of fecal material in the
rectum. 5. Mild hepatic cirrhosis. 6. Severe facet joint arthrosis at L4/L5 an)
Lab Data: Labs Reviewed by me
Impression/Plan
-
IMPRESSION/PLAN:
#UTI out patient culture grew ESBL on 04/19/2025
Urine Cx: pending
Abd/Pel CT: 1. Completely collapsed urinary bladder.
2. Mild chronic bilateral renal disease.
3. Severe calcific atherosclerotic plaque in the abdominal aorta.
4. Moderate to large amount of fecal material in the rectum.
5. Mild hepatic cirrhosis.
6. Severe facet joint arthrosis at L4/L5 and L5/S1.
7. Grade 1 anterolisthesis of L4 on L5.
8. 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
- Admit to med/surg
- IV meropenem
- bladder scan/straight cath
- supportive care
#Hypothyroidism
- continue levothyroxine
#Anxiety / Depression
- continue trazodone and venlafaxine
#GERD
- continue omeprazole
#Chronic Back Pain
#Meniere's Disease
Code status: full code
DVT prophylaxis: heparin sq
--- NOTE | 2025-04-25 23:40 | PTCARENOTE ---
Patient received from the ED and pulled over to the bed. AAOx3, vitals stable, and no complaints of pain or discomfort. Oriented to room and call carrasco within reach.
[2025-04-26] MEDS: DESYREL 50 MG PO ×2 (01:54→21:47)
[2025-04-26] MEDS: SYNTHROID 75 MCG PO (05:39)
[2025-04-26 07:00] VITALS: BP 103/56
[2025-04-26] MEDS: COLACE 100 MG PO ×2 (09:20→21:47)
[2025-04-26] MEDS: EFFEXOR XR 150 MG PO (09:20)
[2025-04-26] MEDS: EFFEXOR XR 300 MG PO (09:20)
[2025-04-26] MEDS: HEPARIN 5000 UNITS SC ×3 (09:20→23:36)
[2025-04-26] MEDS: ZYRTEC 10 MG PO (09:21)
[2025-04-26] MEDS: TOPAMAX 50 MG PO ×2 (09:21→21:47)
[2025-04-26] MEDS: STERILE WATER FOR INJECTION 20 ML IV ×2 (09:21→21:47)
[2025-04-26] MEDS: MERREM 1000 MG IV ×2 (09:22→21:47)
--- NOTE | 2025-04-26 10:17 | CON.ID ---
Consultation
-
Date/Time Consultation Requested: 04/26/25 9:36
Date/Time Consultation Performed: 04/26/25 10:17
Requesting Provider: Dr Nazario
Performing Provider: Dr Centeno
Reason for Consultation: antibiotic management
Chief Complaint / Past History
Chief Complaint
dysuria
History of Present Illness
Ms De La Vega is an 80 year old female with history of CVA with right residual hemiparesis who presented here 04/25 for report of an ESBL UTI. She reports months of dysuria, frequency and the inability to completely void. She has received courses of
cefuroxime and doxycycline over the last two weeks without improvement. A urine culture from 04/19 grew an ESBL Proteus at 10-25 CFU and she was referred to the ER for further treatment. isolate sensitive to meropenem, bactrim; resistant to
tetracycyline, nitrofurantoin, ciprofloxacin. Denies fever, chills, cough, shortness of breath, chest pain, nausea or vomiting. Reports multiple previous urine cultures that were negative despite dysuria over the last several months
Since arrival here she has been afebrile, bp overall stable, wbc 6.9, hgb 12, plt 349, no L shift, na 136, cr 0.8, UA 0-2 wbc/hpf and moderate bacteria, CT a/p showed completely collapsed urinary bladder, no ureteral calculus or evidence of
pyelonephritis, a repeat urine culture from 04/25 was done here as well and is pending.
Past History
Additional Past Medical History:
Hypothyroidism
Anxiety / Depression
GERD
Chronic Back Pain
Meniere's Disease
Additional Past Surgical History:
Hysterectomy
Bladder Repair
Allergy History:
ciprofloxacin (From Cipro) Allergy (Verified 05/11/24 17:33)
Unknown
codeine (Codeine) Allergy (Verified 05/11/24 17:33)
Unknown
nitrofurantoin (From Macrobid) Allergy (Verified 05/11/24 17:33)
Unknown
nitrofurantoin macrocrystalline (From Macrobid) Allergy (Verified 05/11/24 17:33)
Unknown
Penicillins Allergy (Verified 05/11/24 17:33)
Unknown
Sulfa (Sulfonamide Antibiotics) Allergy (Verified 05/11/24 17:33)
Unknown
Medications Reviewed: Yes
Social History
Tobacco: Non-Smoker
Alcohol: None
Drug: None
Family History
Family History: Not Pertinent
Review of Systems
Review of Systems
Constitutional: Denies Fever or Chills
EENT: Denies Sore Throat
Respiratory: Denies Cough, Hemoptysis or Trouble Breathing
Cardiac: Denies Chest Pain, Diaphoresis, Palpitations or Syncope
Abdomen/GI: Reports Abdominal Pain and Constipated; Denies Nausea, Vomiting or Diarrhea
: Reports Dysuria, Frequency, Difficulty Voiding and Urgency
Musculoskeletal: Denies Joint Pain
Skin: Denies Rash
Neurological: Denies Dizzy or Headache
Endocrine: Denies Polyuria or Polydipsia
Vital Signs
Temp Pulse Resp BP Pulse Ox
98.0 F 86 16 103/56 97
04/26/25 07:00 04/26/25 07:00 04/26/25 07:00 04/26/25 07:00 04/26/25 07:00
Physical Exam
Physical Exam
Constitutional: No Acute Distress
Cardiovascular: Regular Rate and S1/S2; Negative Murmur or Rub
Pulmonary: Clear and Symmetric; Negative Wheezes, Rales or Rhonchi
Gastrointestinal: Soft, Non Tender, Non Distended and Normal Bowel Sounds
Genito-Urinary: Negative Suprapubic Tenderness or CVA Tenderness
Skin: Warm and Dry; Negative Rash or Jaundice
Lab / Diagnostic Study Results
04/25/25 16:04
04/25/25 16:04
Abs Immat Gran (auto) 0.0 10^3/uL (0-0.05) 04/25/25 16:04
Absolute Neuts (auto) 3.5 10^3/uL (1.4-6.5) 04/25/25 16:04
Absolute Lymphs (auto) 2.1 10^3/uL (1.2-3.4) 04/25/25 16:04
Absolute Monos (auto) 0.5 10^3/uL (0.1-0.6) 04/25/25 16:04
Absolute Basos (auto) 0.1 10^3/uL (0-0.2) 04/25/25 16:04
Immature Gran % 0.4 % (0-0.5) 04/25/25 16:04
Neutrophils % 51.2 % (42.2-75.2) 04/25/25 16:04
Lymphocytes % 30.6 % (20.5-51.1) 04/25/25 16:04
Monocytes % 6.5 % (1.7-9.3) 04/25/25 16:04
Eosinophils % 9.4 % (0-6) H 04/25/25 16:04
Basophils % 1.9 % (0-2) 04/25/25 16:04
Ur Squamous Epith Cells 11-15 /LPF (Few) 04/25/25 19:52
Microbiology Results
Micro:
04/25/25 19:52 Urine Culture - Pending
Urine
Assessment / Plan
Suspected Interstitial Cystitis
Possible UTI
Allergies: penicillin, ciprofloxacin, sulfa, nitrofurantoin
- a trial of therapy for the identified ESBL E coli is reasonable, however given the history I suspect she has interstitial cystitis and I am not convinced that her symptoms will fully resolve with the antibiotics. Reviewed my concerns with the
patient and she prefers to proceed with an attempt at treatment.
- continue meropenem for a 7 day total course
- midline
- recommend follow up with Dr [facility] for suspected interstitial cystitis; discussed with the naturalization examiner urologist Dr Sanabria he does not treat interstitial cystitis
- asked case assistant to assist patient with referrals for transportation which has been a barrier to her care
[2025-04-26] MEDS: PROTONIX 40 MG PO (11:13)
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
[2025-04-26] MEDS: SENOKOT-S 1 TABLET PO (14:59)
[2025-04-26] MEDS: MIRALAX 17 GRAMS PO (15:00)
--- NOTE | 2025-04-26 15:16 | PTCARENOTE ---
Pt has not had a BM for a few days. Miralax and Senokot given as ordered prn.
--- NOTE | 2025-04-26 16:06 | W.PN.HOSP.TC ---
Today's Communication/Plan
-
Assessment / Plan
Assessment / Plan
NAD
Scleral Anicteric
MMM
No JVD
CTABL
RRR, S1/S2
Soft, NT, ND, BS+
Warm, Dry
AAOx3
Calm
ESBL Proteus identified in outpatient urine culture
Started on meropenem
ID consulted
7-day course of IV meropenem, midline ordered
Isolation precautions
PT/OT
Will need outpatient urogynecologist follow-up
Hypothyroidism
Continue levothyroxine
Anxiety depression
Continue trazodone and venlafaxine
GERD
Continue omeprazole
Anticipated Discharge: Within 24 hours
Subjective/Interval History
-
Date of Service: April 26, 2025
Seen and examined. Resting comfortably in bed. No new complaints.
Objective Data
-
Vital Signs:
Vital Signs
Temp Pulse Resp BP Pulse Ox
98.0 F 86 16 103/56 97
04/26/25 07:00 04/26/25 07:00 04/26/25 07:00 04/26/25 07:00 04/26/25 09:15
I&O
04/25/25 04/26/25 04/27/25
06:59 06:59 06:59
Intake Total 480 / 480
Balance 480 / 480
[2025-04-26] MEDS: LIPITOR 40 MG PO (17:15)
[2025-04-26] MEDS: TYLENOL 650 MG PO (21:46)
[2025-04-26 23:35] VITALS: BP 96/53
[2025-04-27] MEDS: SYNTHROID 75 MCG PO (05:54)
[2025-04-27] MEDS: ZYRTEC 10 MG PO (07:35)
[2025-04-27] MEDS: COLACE 100 MG PO ×2 (07:35→20:49)
[2025-04-27] MEDS: HEPARIN 5000 UNITS SC ×3 (07:36→23:55)
[2025-04-27] MEDS: MERREM 1000 MG IV ×2 (07:36→20:49)
[2025-04-27] MEDS: STERILE WATER FOR INJECTION 20 ML IV ×2 (07:36→20:49)
[2025-04-27] MEDS: TOPAMAX 50 MG PO ×2 (07:37→20:48)
[2025-04-27 08:00] VITALS: BP 120/74
[2025-04-27 09:06] VITALS: BP 112/78; PULSE 77; O2SAT 99
--- NOTE | 2025-04-27 11:38 | CM ---
Addendum entered by Blanca Maradiaga 04/27/25 15:57:
CM spoke with patients daughterDebra, who is requesting Acute Rehab. CM explained therapy recommendations of SNF, patient does not have an acute rehab diagnosis to qualify for acute rehab along with insurance approval. SNF referrals placed,
awaiting accepting facility.
Daughter requesting call from Physician, TT with request.
Original Note:
CM reviewed chart, reviewed with Hospitalist.
CM reviewed therapy recommendations- recommending SNF.
Patient seen bedside, discussed therapy rec SNF, not Acute Rehab. Pt aware, requesting referrals to [facility].
Patient will require insurance auth once facility found, will require IV antibiotics at SNF.
CM will continue to follow for all d/c planning needs.
Plan: SNF pending accepting facility, referrals placed, will require IV antibiotics, auth
[2025-04-27] MEDS: PROTONIX 40 MG PO (11:56)
--- NOTE | 2025-04-27 12:24 | W.PN.ID1 ---
Date of Service
Date of Service: April 27, 2025
Today's Communication
- continue meropenem for a 7 day total course 04/25-05/01
- midline
- recommend follow up with Dr [facility] for suspected interstitial cystitis
Assessment / Plan
Suspected Interstitial Cystitis
Possible UTI
Allergies: penicillin, ciprofloxacin, sulfa, nitrofurantoin
- a trial of therapy for the identified ESBL E coli is reasonable, however given the history I suspect she has interstitial cystitis and I am not convinced that her symptoms will fully resolve with the antibiotics. Reviewed my concerns with the
patient and she prefers to proceed with an attempt at treatment.
- continue meropenem for a 7 day total course 04/25-05/01
- midline
- recommend follow up with Dr [facility] for suspected interstitial cystitis
Chief Complaint
-: UTI
Subjective / Review of Systems
afebrile
bp stable
tolerating current therapies
reports dysuria is improved
Vital Signs / Physical Exam
Vital Signs
Vital Signs
Temp Pulse Resp BP Pulse Ox
98.3 F 85 16 120/74 96
04/27/25 08:00 04/27/25 08:00 04/27/25 08:00 04/27/25 08:00 04/27/25 08:00
Physical Exam
Constitutional: No Acute Distress
Cardiovascular: Regular Rate and S1/S2; Negative Murmur or Rub
Pulmonary: Clear and Symmetric; Negative Wheezes or Rales
Gastrointestinal: Soft, Non Tender, Non Distended and Normal Bowel Sounds
Genito-Urinary: Negative Suprapubic Tenderness
Skin: Warm and Dry; Negative Rash or Jaundice
Objective Data
Lab Data
Lab Results
04/25/25 16:04
04/25/25 16:04
Total Bilirubin 0.3 mg/dl (0.2-1.3) 04/25/25 16:04
AST 25 U/L (14-36) 04/25/25 16:04
ALT 20 U/L (0-35) 04/25/25 16:04
Alkaline Phosphatase 112 U/L (38-126) 04/25/25 16:04
Most recent labs reviewed.
Micro Results:
04/25/25 19:52 Urine Culture - Final
Urine NO GROWTH
--- NOTE | 2025-04-27 15:18 | W.DCSUMMARY ---
Discharge Summary
Discharge Data
Date of Admission: 04/25/25
Date of Discharge: 04/27/25
-
Pending Results: No
Hospital Course
80-year-old female with past medical history significant for hypothyroidism, anxiety/depression, GERD, chronic back pain and Meniere's disease
Presented with a resistant urine culture with ESBL that was found as an outpatient. Was evaluated by infectious diseases recommended IV meropenem x 7 days. Midline placed. Evaluated by physical therapy occupational therapy recommended skilled
nursing facility.
With saying that we will need outpatient follow-up with a urogynecologist ideally with Dr. [facility] for suspected interstitial cystitis.
Additionally, should be noted that on the CT abdomen pelvis see full report below noted to have severe calcific atherosclerotic plaque in the abdominal aorta. Will need to be followed up with outpatient abdominal ultrasound with PCP/family medical
provider and even possibly be seen by vascular surgery. Will place referrals on chart
CTAP
IMPRESSION:
1. Completely collapsed urinary bladder.
2. Mild chronic bilateral renal disease.
3. Severe calcific atherosclerotic plaque in the abdominal aorta.
4. Moderate to large amount of fecal material in the rectum.
5. Mild hepatic cirrhosis.
6. Severe facet joint arthrosis at L4/L5 and L5/S1.
7. Grade 1 anterolisthesis of L4 on L5.
8. 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
Seen and examined on the day of discharge which was 04/27/25. No new complaints. No acute overnight events
Sitting in bedside chair. No complaints
NAD
Scleral Anicteric
MMM
No JVD
CTABL
RRR, S1/S2
Soft, NT, ND, BS+
Warm, Dry
AAOx3
Calm
More than 30 minutes spent in discharge including
Final examination of the patient
Summarizing hospital stay
Instructions for continuing care to all relevant caregivers
Preparation of discharge records, prescriptions, and referral forms
Total time spent (in minutes): 33mins
Discharge Plan
-
Patient Disposition: Alf/SNF
Discharge Diagnosis/Procedures: ESBL UTI
Condition: Good
Diet: As tolerated
Activity: As tolerated
Activity Restrictions/Additional Instructions:
Presented with a resistant urine culture with ESBL that was found as an outpatient. Was evaluated by infectious diseases recommended IV meropenem x 7 days. Midline placed. Evaluated by physical therapy occupational therapy recommended skilled
nursing facility.
With saying that we will need outpatient follow-up with a urogynecologist ideally with Dr. Dr [facility] for suspected interstitial cystitis.
Additionally, should be noted that on the CT abdomen pelvis see full report below noted to have severe calcific atherosclerotic plaque in the abdominal aorta. Will need to be followed up with outpatient abdominal ultrasound with PCP/family medical
provider and even possibly be seen by vascular surgery. Will place referrals on chart
CTAP
IMPRESSION:
1. Completely collapsed urinary bladder.
2. Mild chronic bilateral renal disease.
3. Severe calcific atherosclerotic plaque in the abdominal aorta.
4. Moderate to large amount of fecal material in the rectum.
5. Mild hepatic cirrhosis.
6. Severe facet joint arthrosis at L4/L5 and L5/S1.
7. Grade 1 anterolisthesis of L4 on L5.
8. 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
Referrals:
Becca Null DO [Active, Urology] - in one to two weeks
Referral Note: for interstitial cystitis/urogyn
Rona Wilson DO [Family Provider, Family Practice]
Steve Morrison MD [Active, Vascular Surgery] - in two to four weeks
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
Prescriptions:
New
meropenem 1 gram Recon Soln
1,000 mg IV Q12
docusate sodium 100 mg Capsule
100 mg PO BID Qty: 30 0RF
Continued
polyethylene glycol 3350 [Miralax] 17 gram Powder In Packet
17 g PO DAILYPRN PRN (Reason: constipation)
venlafaxine 150 mg Capsule,Extended Release 24hr
300 mg PO Q48H
venlafaxine 150 mg Capsule,Extended Release 24hr
150 mg PO Q48H
omeprazole 40 mg Capsule,Delayed Release(Dr/Ec)
40 mg PO NOON
atorvastatin 40 mg Tablet
40 mg PO QPM Qty: 0 0RF
trazodone 50 mg tablet
50 mg PO HS
cetirizine 10 mg tablet
10 mg PO DAILY
levothyroxine 75 mcg tablet
75 mcg PO DAILY
topiramate 25 mg tablet
50 mg PO BID
Discharge Orders:
Discharge Patient (As Directed); Ordered 04/27/25
Ordered By: Oscar Nazario
Discharge Date and Time
Print Language: SINGAPOREAN
[2025-04-27 16:20] VITALS: BP 143/92
[2025-04-27] MEDS: LIPITOR 40 MG PO (17:05)
[2025-04-27] MEDS: MIRALAX 17 GRAMS PO (20:47)
[2025-04-27] MEDS: SENOKOT-S 1 TABLET PO (20:48)
[2025-04-27] MEDS: DESYREL 50 MG PO (22:10)
[2025-04-27 23:01] VITALS: BP 118/67
[2025-04-28] MEDS: DULCOLAX 10 MG RECTAL (04:59)
[2025-04-28] MEDS: SYNTHROID 75 MCG PO (05:00)
[2025-04-28 07:00] VITALS: BP 168/84
[2025-04-28] MEDS: MERREM 1000 MG IV ×2 (08:00→19:28)
[2025-04-28] MEDS: ZYRTEC 10 MG PO (08:00)
[2025-04-28] MEDS: STERILE WATER FOR INJECTION 20 ML IV ×2 (08:00→19:28)
[2025-04-28] MEDS: EFFEXOR XR 300 MG PO (08:01)
[2025-04-28] MEDS: EFFEXOR XR 150 MG PO (08:01)
[2025-04-28] MEDS: COLACE 100 MG PO ×2 (08:01→19:27)
[2025-04-28] MEDS: TOPAMAX 50 MG PO ×2 (08:02→19:27)
[2025-04-28] MEDS: HEPARIN 5000 UNITS SC ×3 (09:05→23:40)
[2025-04-28] MEDS: PROTONIX 40 MG PO (11:50)
--- NOTE | 2025-04-28 12:11 | CM ---
Addendum entered by Blanca Maradiaga 04/28/25 16:26:
Patient seen bedside with son and daughter. Provided additional facilities that accept [employer] insurance.
Patient/family agreeable to [facility]- discussed with liaison, will inform CM tomorrow morning if bed available. Daughter still upset that patient does not qualify for acute rehab as patients outpatient therapists are recommending acute rehab.
Patient will require auth.
Plan; [facility], confirm tomorrow bed availability, will need auth.
Original Note:
CM reviewed chart, reviewed with Hospitalist and Physical Therapy.
Patients daughter inquiring about acute rehab, explained patient does not have acute rehab diagnosis, would not be covered by insurance.
Hospitalist reached out to Dr. Clayton, also feel patient is SNF level appropriate.
Patient seen bedside, aware not appropriate for acute rehab, agreeable to SNF but would like daughter updated on accepting facilities before choosing.
Phone call to daughter, Debra, aware patient is stable for d/c, patient will need insurance auth once agreeable to facility.
Daughter provided with following facilities that can accept patient: [facility], [facility], [facility]. Daughter would like to review prior to submitting for auth, daughter will update CM on facility.
CM will continue to follow.
Plan; SNF, family to review and provide choice to CM, will require IV antibiotics at SNF, will need insurance auth.
--- NOTE | 2025-04-28 13:22 | W.DCSUMMARY ---
Discharge Summary
Discharge Data
Date of Admission: 04/25/25
Date of Discharge: 04/28/25
-
Pending Results: No
Hospital Course
80-year-old female with past medical history significant for hypothyroidism, anxiety/depression, GERD, chronic back pain and Meniere's disease
Presented with a resistant urine culture with ESBL that was found as an outpatient. Was evaluated by infectious diseases recommended IV meropenem x 7 days. Midline placed. Evaluated by physical therapy occupational therapy recommended skilled
nursing facility.
With saying that we will need outpatient follow-up with a urogynecologist ideally with Dr. [facility] for suspected interstitial cystitis.
Additionally, should be noted that on the CT abdomen pelvis see full report below noted to have severe calcific atherosclerotic plaque in the abdominal aorta. Will need to be followed up with outpatient abdominal ultrasound with PCP/family medical
provider and even possibly be seen by vascular surgery. Will place referrals on chart
In addition to calcific atherosclerotic plaque in the abdominal aorta. CT did demonstrate mild hepatic cirrhosis. At this time without stigmata of decompensated cirrhosis will require outpatient gastroenterology follow-up with further cirrhosis
workup with likely upper endoscopy and FibroSure study.
CTAP
IMPRESSION:
1. Completely collapsed urinary bladder.
2. Mild chronic bilateral renal disease.
3. Severe calcific atherosclerotic plaque in the abdominal aorta.
4. Moderate to large amount of fecal material in the rectum.
5. Mild hepatic cirrhosis.
6. Severe facet joint arthrosis at L4/L5 and L5/S1.
7. Grade 1 anterolisthesis of L4 on L5.
8. 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
Seen and examined on the day of discharge which was 04/28/25. No new complaints. No acute overnight events
Sitting in bedside chair. No complaints
I personally called her daughter Debra and spoke with her over the phone.
-Debra wanted her mother to go to acute inpatient rehab. States that her home physical therapist is recommending acute inpatient rehab. I informed her that at this time she is clinically infected and has been lying in the bed for the past 2 days
since being admitted. She is physically deconditioned. However physical therapist have recommended retirement facility. We cannot push her into acute inpatient rehab if physical therapy is not recommending that. However she still did not
understand this and kept on pushing for acute inpatient rehab. Therefore consulted physiatry in order for them to speak with her daughter directly.
-Debra also wanted a cirrhosis workup completed while inpatient. I informed her she would need to see gastroenterology as an outpatient and would need to have cirrhotic workup such as a FibroSure study completed as an outpatient. There is no role
for inpatient workup at this time for cirrhosis even though the new diagnosis and incidentally found on CT abdomen pelvis has she is not in decompensated cirrhosis.
NAD
Scleral Anicteric
MMM
No JVD
CTABL
RRR, S1/S2
Soft, NT, ND, BS+
Warm, Dry
AAOx3
Calm
More than 30 minutes spent in discharge including
Final examination of the patient
Summarizing hospital stay
Instructions for continuing care to all relevant caregivers
Preparation of discharge records, prescriptions, and referral forms
Total time spent (in minutes): 33mins
Discharge Plan
-
Patient Disposition: Long-Term/SNF
Discharge Diagnosis/Procedures: ESBL UTI
Condition: Good
Diet: As tolerated
Activity: As tolerated
Others Tests: We have scheduled a lower extremity ultrasound on 05/12/2025 at 3pm here at [facility], this is vital for your appointment with Dr. Steve Morrison.
Activity Restrictions/Additional Instructions:
Presented with a resistant urine culture with ESBL that was found as an outpatient. Was evaluated by infectious diseases recommended IV meropenem x 7 days. Midline placed. Evaluated by physical therapy occupational therapy recommended skilled
nursing facility.
With saying that we will need outpatient follow-up with a urogynecologist ideally with Dr. Dr [facility] for suspected interstitial cystitis.
Additionally, should be noted that on the CT abdomen pelvis see full report below noted to have severe calcific atherosclerotic plaque in the abdominal aorta.
I reached out to vascular surgery personally. They have set up appointment for 05/13/2025 at 8 AM.
In addition to calcific atherosclerotic plaque in the abdominal aorta. CT did demonstrate mild hepatic cirrhosis. At this time without stigmata of decompensated cirrhosis will require outpatient gastroenterology follow-up with further cirrhosis
workup with likely upper endoscopy and FibroSure study.
CTAP
IMPRESSION:
1. Completely collapsed urinary bladder.
2. Mild chronic bilateral renal disease.
3. Severe calcific atherosclerotic plaque in the abdominal aorta.
4. Moderate to large amount of fecal material in the rectum.
5. Mild hepatic cirrhosis.
6. Severe facet joint arthrosis at L4/L5 and L5/S1.
7. Grade 1 anterolisthesis of L4 on L5.
8. 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
Referrals:
Becca Null DO [Active, Urology] - in one to two weeks
Referral Note: for interstitial cystitis/urogyn
Rona Wilson DO [Family Provider, Family Practice]
Steve Morrison MD [Active, Vascular Surgery] - 05/13/25 8:00 am
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
Zamzam Cedillo DO [Active, Gastroenterology] - in two to three weeks
Prescriptions:
New
meropenem 1 gram Recon Soln
1,000 mg IV Q12
docusate sodium 100 mg Capsule
100 mg PO BID Qty: 30 0RF
Continued
polyethylene glycol 3350 [Miralax] 17 gram Powder In Packet
17 g PO DAILYPRN PRN (Reason: constipation)
venlafaxine 150 mg Capsule,Extended Release 24hr
300 mg PO Q48H
venlafaxine 150 mg Capsule,Extended Release 24hr
150 mg PO Q48H
omeprazole 40 mg Capsule,Delayed Release(Dr/Ec)
40 mg PO NOON
atorvastatin 40 mg Tablet
40 mg PO QPM Qty: 0 0RF
trazodone 50 mg tablet
50 mg PO HS
cetirizine 10 mg tablet
10 mg PO DAILY
levothyroxine 75 mcg tablet
75 mcg PO DAILY
topiramate 25 mg tablet
50 mg PO BID
Discharge Orders:
Discharge Patient (As Directed); Ordered 04/27/25
Ordered By: Oscar Nazario
Discharge Date and Time
Print Language: GREEK
--- NOTE | 2025-04-28 15:08 | W.PN.ID1 ---
Date of Service
Date of Service: April 28, 2025
Today's Communication
- continue meropenem for a 7 day total course 04/25-05/01
- midline
- recommend follow up with Dr [facility] for suspected interstitial cystitis
Assessment / Plan
Suspected Interstitial Cystitis
Possible UTI
Allergies: penicillin, ciprofloxacin, sulfa, nitrofurantoin
- a trial of therapy for the identified ESBL E coli is reasonable, however given the history I suspect she has interstitial cystitis and I am not convinced that her symptoms will fully resolve with the antibiotics. Reviewed my concerns with the
patient and daughter and she prefers to proceed with an attempt at treatment.
- continue meropenem for a 7 day total course 04/25-05/01
- midline
- recommend follow up with Dr [facility]cca [facility] for suspected interstitial cystitis
Chief Complaint
-: UTI
Subjective / Review of Systems
afebrile
bp stable
tolerating current therapy
reports that her dysuria has resolved
Vital Signs / Physical Exam
Vital Signs
Vital Signs
Temp Pulse Resp BP Pulse Ox
98.5 F 79 16 168/84 96
04/28/25 07:00 04/28/25 07:00 04/28/25 07:00 04/28/25 07:00 04/28/25 07:00
Physical Exam
Constitutional: No Acute Distress
Cardiovascular: Regular Rate and S1/S2; Negative Murmur or Rub
Pulmonary: Clear and Symmetric; Negative Wheezes or Rales
Gastrointestinal: Soft, Non Tender, Non Distended and Normal Bowel Sounds
Skin: Warm and Dry; Negative Rash or Jaundice
Objective Data
Lab Data
Lab Results
04/25/25 16:04
04/25/25 16:04
Total Bilirubin 0.3 mg/dl (0.2-1.3) 04/25/25 16:04
AST 25 U/L (14-36) 04/25/25 16:04
ALT 20 U/L (0-35) 04/25/25 16:04
Alkaline Phosphatase 112 U/L (38-126) 04/25/25 16:04
Most recent labs reviewed.
Micro Results:
04/25/25 19:52 Urine Culture - Final
Urine NO GROWTH
[2025-04-28 15:31] VITALS: BP 137/82
[2025-04-28] MEDS: LIPITOR 40 MG PO (17:07)
[2025-04-28] MEDS: DESYREL 50 MG PO (21:30)
[2025-04-28 23:17] VITALS: BP 100/63
[2025-04-29] MEDS: SYNTHROID 75 MCG PO (05:02)
[2025-04-29 07:31] VITALS: BP 128/79
[2025-04-29] MEDS: ZYRTEC 10 MG PO (08:53)
[2025-04-29] MEDS: HEPARIN 5000 UNITS SC ×3 (08:53→23:17)
[2025-04-29] MEDS: TOPAMAX 50 MG PO ×2 (08:53→19:30)
[2025-04-29] MEDS: COLACE 100 MG PO ×2 (08:53→19:30)
[2025-04-29] MEDS: MERREM 1000 MG IV ×2 (08:53→19:30)
[2025-04-29] MEDS: STERILE WATER FOR INJECTION 20 ML IV ×2 (08:53→19:30)
--- NOTE | 2025-04-29 09:19 | CM ---
casino shift manager reviewed patient's chart and patient has been accepted at [facility] today, rn case manager hospice reached out to patient's insurance to obtain Auth for skilled placement.
Plan; Skilled placement at [facility] pending Auth.
--- NOTE | 2025-04-29 09:34 | CM ---
Insurance authorization initiated with MATTY NIEVES for skilled rehab at [facility]
Spoke with [facility]
Pended reference # [id number]
clinicals faxed to [phone]
await insurance authorization
[2025-04-29] MEDS: PROTONIX 40 MG PO (11:04)
[2025-04-29 12:19] LABS: Hepatitis B Surface Antigen Negative (Negative)
--- NOTE | 2025-04-29 12:33 | CON.MD ---
Consultation - Medical
-
Chief Complaint:�Debility
�
History of Present Illness:� 80-year-old female with PMH (as below) presented to [facility] on 04/25/2025 with urinary symptoms. She had been treated over the past few weeks for UTI with no improvement and was told to come to the emergency
department for evaluation related to resistant culture growth. Urine culture from 04/19/2025 grew ESBL. She had lower abdominal pain that radiates around the back and constipation for 2 days. She was treated with meropenem. Seen by infectious
disease with plan for 7-day course of meropenem. Infectious disease suggest follow-up with Dr. Becca Null for suspected interstitial cystitis.
Overall feeling tired. Denies any new concerns. Still with some right-sided weakness from her prior stroke, no change from recent baseline.
�
Past Medical History:�Anxiety, depression, GERD, chronic back pain, M�ni�re's disease, hypothyroidism, CVA with right-sided weakness
Procedure History:�Hysterectomy, bladder repair
Family History:�None pertinent
�
Social History:�
Functional Level Premorbidly:�Patient uses wheelchair bed and commode. She cannot ambulate alone. Daughter helps with hygiene but cannot physically lift the patient. She has a hospital bed.
Functional Level Currently:�Min assist bed mobility and transfers. Dependent for toileting and lower extremity self-care.
�
Tobacco:�Denies�
Alcohol:�Denies�
Drug use:�Denies�
�
Lives with:�Daughter daughter, normally lives in an apartment with her son with elevator access.
24-hour assistance available:�Yes
Number of floors:�1
# steps to enter:�5
Driving:�No
Occupation:�Retired
�
�
Allergies:�
Allergy/AdvReac Type Severity Reaction Status Date / Time
ciprofloxacin (From Cipro) Allergy Unknown Verified 05/11/24 17:33
codeine (Codeine) Allergy Unknown Verified 05/11/24 17:33
nitrofurantoin (From Allergy Unknown Verified 05/11/24 17:33
Macrobid)
nitrofurantoin Allergy Unknown Verified 05/11/24 17:33
macrocrystalline (From
Macrobid)
Penicillins Allergy Unknown Verified 05/11/24 17:33
Sulfa (Sulfonamide Allergy Unknown Verified 05/11/24 17:33
Antibiotics)
�
Review of Systems:�
Constitutional: (x) abNormal _tired
Eye: (x) Normal _
Ear/Nose/Throat: (x) Normal _
Respiratory: (x) Normal _
Cardiovascular: (x) Normal _
Gastrointestinal: (x) Normal _
Genitourinary: (x) abNormal _UTI
Musculoskeletal: (x) Normal _
Integumentary: (x) Normal _
Neurologic: (x) abNormal _right-sided weakness from old stroke
Psychiatric: (x) Normal _
Endocrine: (x) Normal _
Hematologic/Lymphatic: (x) Normal _
Allergic/Immunologic: (x) Normal _
�
Medications:�
Active Current Visit Medication List
Category Date Time Status
Acetaminophen [Tylenol] Med 04/26/25 01:05 Active
650 mg PO Q4HPRN PRN
Atorvastatin [Lipitor] Med 04/26/25 18:00 Active
40 mg PO QPM
Bisacodyl [Dulcolax] Med 04/26/25 01:05 Active
10 mg RECTAL [id number] PRN
Cetirizine HCl [Zyrtec] Med 04/26/25 08:00 Active
10 mg PO DAILY
Docusate Sodium [Colace] Med 04/26/25 08:00 Active
100 mg PO BID
Docusate W/Senna [Senokot-S] Med 04/26/25 01:05 Active
1 tablet PO BIDPRN PRN
Flush (0.9% Sodium Chloride) [Flush (Nss)] Med 04/26/25 02:00 Active
See Dose Instructions IV PER PROTOCOL
Heparin Med 04/26/25 08:00 Active
5,000 units SC Q8
Levothyroxine [Synthroid] Med 04/26/25 06:00 Active
75 mcg PO DAILY @ 0600
Meropenem [Merrem] Med 04/26/25 08:00 Active
1,000 mg IV Q12
Pantoprazole [Protonix] Med 04/26/25 12:00 Active
40 mg PO NOON
Polyethylene Glycol Powder [Miralax] Med 04/26/25 01:05 Active
17 grams PO DAILYPRN PRN
Sterile Water [Sterile Water For Injection] Med 04/26/25 08:00 Active
20 ml IV Q12
Topiramate [Topamax] Med 04/26/25 08:00 Active
50 mg PO BID
Trazodone [Desyrel] Med 04/26/25 01:05 Active
50 mg PO HS
Venlafaxine Extended Release [Effexor Xr] Med 04/26/25 08:00 Active
150 mg PO Q48H
Venlafaxine Extended Release [Effexor Xr] Med 04/26/25 08:00 Active
300 mg PO Q48H
�
Vitals:�
Temp Pulse Resp BP Pulse Ox
98.3 F 90 17 133/65 98
04/29/25 15:07 04/29/25 15:07 04/29/25 15:07 04/29/25 15:07 04/29/25 15:07
Height 5 ft
Actual Weight 55.565 kg
Body Mass Index (BMI) 23.9
�
Physical Exam:�
General Appearance/Observation: Well-developed, well-nourished female in no apparent distress.�
Pain/Comfort Assessment: Denies�
Mood/Affect: Appropriate�
�
Integumentary/Operative Site:�Left arm IV
Eyes: Conjunctiva/Lids: normal��� Pupils: pupils equal round and reactive to light
Ears/Nose/Throat: oral mucosa slightly dry, throat clear.������������ Lips/Teeth/Gums: normal
Neck: No muscle spasm or tenderness�
Cardiovascular: Heart: regular, no murmur�
Pulses: dorsalis pedis 2+ bilaterally�
Respiratory: Respiratory Effort/Chest Expansion: normal������ Auscultation: Clear to auscultation bilaterally
Gastrointestinal: abdomen not tender, no distension, normal abdominal bowel sounds
Genitourinary: No Up�
Rectal Exam: Deferred�
Extremities:�Edema: None�Cyanosis: None�Trophic�changes: None
�
Neurology Exam:
Orientation: Alert, Oriented to self, Time, Place�
Memory: Intact for recent medical concerns
Comprehension: Intact
Two step command: Intact
Cranial Nerves:
�� CNII:�Pupillary light reflex: Intact���Visual Field: Intact
�� CN III, IV, : Extraocular muscles: Intact�
�� CN V:�Facial Sensation�at�Forehead: Intact,�Maxilla: Intact,�Mandible: Intact
�� CN VII:�Facial movement: Symmetric
�� CN VIII:�Hearing: Normal
�� CN IX/X:�Speech & swallow: Normal,�Position of Uvula: Midline
�� CN XI:�Shoulder shrug: Symmetric
�� CN XII:�Tongue protrusion: Midline
Sensory:
�� Light touch: Intact in bilateral upper and lower extremities
�
Cerebellar: Dysmetria/Ataxia: Impaired on the right, intact on the left
Musculoskeletal:Motor: (Manual muscle scale 0-5)�
Muscle SA EF WE EE FF FA HF KE DF EHL PF
Right� 2 3+ 3+ 3+ 3 3 3+ 3+ 3+
Left 4 4 4 4 4 4 4 4 4
�
Tone: Normal in all extremities�
Range of Motion: limited left shoulder, wrist
�
Lab Results
Laboratory Data
04/25/25 16:04
04/25/25 16:04
Total Bilirubin 0.3 mg/dl (0.2-1.3) 04/25/25 16:04
AST 25 U/L (14-36) 04/25/25 16:04
ALT 20 U/L (0-35) 04/25/25 16:04
Alkaline Phosphatase 112 U/L (38-126) 04/25/25 16:04
Total Protein 7.9 g/dl (6.3-8.2) 04/25/25 16:04
Albumin 3.7 g/dl (3.5-5.0) 04/25/25 16:04
�
Diagnostic Results:�as per HPI�
�
Assessment
80-year-old right handed female PMH (Anxiety, depression, GERD, chronic back pain, M�ni�re's disease, hypothyroidism, CVA with right-sided weakness�) with UTI and concern for interstitial cystitis
Plan�
PM&R�PT/OT to increase independence with ADLs, improve balance, coordination, endurance, strength, mobility, community reintegration, decreased burden of care on others and family education.�
�
UTI: meropenem
CVA History: on statin. Not on aspirin or plavix.
Chronic Right dominant hemiparesis: ROM exercises.
�
Hypothyroidism: levothyroxine
Anxiety/depression: Venlafaxine, Topiramate
Pain: acetaminophen as needed.�
Bowel: PRN Colace and Senna.�
Bladder: Time void, PVRs, PRN straight cath.�
GI Prophylaxis: Pantoprazole�
DVT Prophylaxis: mechanical and heparin
Pulmonary: Incentive spirometry�
Safety: Continue to reinforce assistance with all transfers.�
Code Status:� Full code
Dispo�(date/plan/equipment needs): Home with family care.� Social history reviewed.�
Functional and Medical Goals:�Modified Independent with ADL�s, ambulation, transfers�
Discharge Destination:�SNF�
�
�
Thank you for allowing me to care for your patient. Please contact me with any questions or concerns.
Consultation
-
Date/Time Consultation Requested: 04/28/25
Date/Time Consultation Performed: 04/29/25
Requesting Provider: Dr. Oscar Naazrio
Performing Provider: Dr. Rusty Clayton
Reason for Consultation: Rehab placement
--- NOTE | 2025-04-29 12:34 | W.PN.HOSP.TC ---
Today's Communication/Plan
-
continuity coordinator assessment
Assessment / Plan
Assessment / Plan
80yo F with PMHX of hypothyroidism, anxiety, HX of CVA, HTN, Hx of hysterectomy came with generalized weakness and dysuria, managed for UTI with ESBL E.coli. ID recommended outpatient eval with Dr.Gotlieb katz to interstitial cystitis. MIdline
placed, merrem planned till 05/01/25. ALos radiographic liver cirrhosis with normal LFT - will need further outpatient w/u
A/P
#Interstitial cystitis
UTI
ESBL
Merrem as per ID, midline placed
follow up with Dr [facility]cca [facility] for suspected interstitial cystitis
#Small hiatal hernia
asymptomatic
#Constipation
laxatives
#DJD
Tylenol
#HX of CVA
#Essential HTN
cont home meds
#Radiographic liver cirrosis
check hepatitis panel
outpatient GI
Hepatitis panel pending
DVT ppx hep
Full code
I have spent at least 38min reviewing chart, test results, communication with consultants, daughter and providing direct patient care
Anticipated Discharge: Within 24 hours
Subjective/Interval History
-
Date of Service: April 29, 2025
Objective Data
-
Vital Signs:
Vital Signs
Temp Pulse Resp BP Pulse Ox
98.3 F 82 17 128/79 96
04/29/25 07:31 04/29/25 07:31 04/29/25 07:31 04/29/25 07:31 04/29/25 07:31
I&O
04/28/25 04/29/25 04/30/25
06:59 06:59 06:59
Intake Total 720 / 720 960 / 960
Balance 720 / 720 960 / 960
Review of Systems
-
History Source: Patient
All other systems: Reviewed and negative
Physical Exam
-
General: Comfortable
HEENT: Normocephalic
Respiratory: Clear to Auscultation
Cardiac: Regular Rhythm
GI: Soft, Nontender and Nondistended
Musculoskeletal: No Clubbing, No Cyanosis and No Edema
Neuro: Awake, Alert, Oriented and AO x 3
Psych: Calm
[2025-04-29 12:37] LABS: Hepatitis C Antibody Negative (Negative)
--- NOTE | 2025-04-29 14:54 | W.PN.ID1 ---
Date of Service
Date of Service: April 29, 2025
Today's Communication
- continue meropenem for a 7 day total course 04/25-05/01
Assessment / Plan
Suspected Interstitial Cystitis
Possible UTI
Allergies: penicillin, ciprofloxacin, sulfa, nitrofurantoin
- a trial of therapy for the identified ESBL E coli is reasonable, however given the history I suspect she has interstitial cystitis and I am not convinced that her symptoms will fully resolve with the antibiotics. Reviewed my concerns with the
patient and daughter and she prefers to proceed with an attempt at treatment.
- continue meropenem for a 7 day total course 04/25-05/01
- midline
- recommend follow up with Dr [facility]cca [facility] for suspected interstitial cystitis
Chief Complaint
-: UTI
Subjective / Review of Systems
not immune to hepatitis B, negative for hepatitis B and C
afebrile
bp stable
reports dysuria has resolved
Vital Signs / Physical Exam
Vital Signs
Vital Signs
Temp Pulse Resp BP Pulse Ox
98.3 F 82 17 128/79 96
04/29/25 07:31 04/29/25 07:31 04/29/25 07:31 04/29/25 07:31 04/29/25 07:31
Physical Exam
Constitutional: No Acute Distress
Cardiovascular: Regular Rate and S1/S2; Negative Murmur or Rub
Pulmonary: Clear and Symmetric; Negative Wheezes or Rales
Gastrointestinal: Soft, Non Tender, Non Distended and Normal Bowel Sounds
Skin: Warm and Dry; Negative Rash or Jaundice
Objective Data
Lab Data
Lab Results
04/25/25 16:04
04/25/25 16:04
Total Bilirubin 0.3 mg/dl (0.2-1.3) 04/25/25 16:04
AST 25 U/L (14-36) 04/25/25 16:04
ALT 20 U/L (0-35) 04/25/25 16:04
Alkaline Phosphatase 112 U/L (38-126) 04/25/25 16:04
Most recent labs reviewed.
Micro Results:
04/25/25 19:52 Urine Culture - Final
Urine NO GROWTH
[2025-04-29 15:07] VITALS: BP 133/65
[2025-04-29] MEDS: LIPITOR 40 MG PO (16:21)
[2025-04-29] MEDS: DESYREL 50 MG PO (21:40)
[2025-04-29] MEDS: BENADRYL 25 MG PO (21:40)
[2025-04-29 23:00] VITALS: BP 114/76
[2025-04-30] MEDS: SYNTHROID 75 MCG PO (05:16)
[2025-04-30 07:53] VITALS: BP 127/74
[2025-04-30] MEDS: EFFEXOR XR 300 MG PO (08:50)
[2025-04-30] MEDS: COLACE 100 MG PO (08:50)
[2025-04-30] MEDS: TOPAMAX 50 MG PO (08:51)
[2025-04-30] MEDS: HEPARIN 5000 UNITS SC (08:51)
[2025-04-30] MEDS: ZYRTEC 10 MG PO (08:51)
[2025-04-30] MEDS: STERILE WATER FOR INJECTION 20 ML IV (08:51)
[2025-04-30] MEDS: EFFEXOR XR 150 MG PO (08:51)
[2025-04-30] MEDS: MERREM 1000 MG IV (08:51)
--- NOTE | 2025-04-30 10:26 | W.PN.HOSP.TC ---
Addendum entered and electronically signed by Ramón Varela MD 04/30/25 11:34:
Please dont use billing under this PN, use d/c summary billing instead
Addendum entered and electronically signed by Ramón Varela MD 04/30/25 11:08:
discussed d/c in details with daughter over the phone
Original Note:
Today's Communication/Plan
-
medically stable for d/c to [facility] - CM aware. Was awaiting for auth as per 04/29/25
Assessment / Plan
Assessment / Plan
80yo F with PMHX of hypothyroidism, anxiety, HX of CVA, HTN, Hx of hysterectomy came with generalized weakness and dysuria, managed for UTI with ESBL E.coli. ID recommended outpatient eval with Dr.Gotlieb katz to interstitial cystitis. MIdline
placed, merrem planned till 05/01/25. Alsos radiographic liver cirrhosis with normal LFT - will need further outpatient w/u
A/P
#Interstitial cystitis
UTI
ESBL
Merrem as per ID, midline placed
follow up with Dr Becca [facility] for suspected interstitial cystitis
#Small hiatal hernia
asymptomatic
#Constipation
laxatives
#DJD
Tylenol
#HX of CVA
#Essential HTN
cont home meds
#Radiographic liver cirrhosis
hepatitis panel neg
outpatient GI
Hepatitis panel pending
DVT ppx hep
Full code
I have spent at least 38min reviewing chart, test results, communication with consultants, daughter and providing direct patient care
Anticipated Discharge: Within 24 hours
Subjective/Interval History
-
Date of Service: April 30, 2025
Objective Data
-
Vital Signs:
Vital Signs
Temp Pulse Resp BP Pulse Ox
98.3 F 70 16 127/74 96
04/30/25 07:53 04/30/25 07:53 04/30/25 07:53 04/30/25 07:53 04/30/25 07:53
I&O
04/29/25 04/30/25 05/01/25
06:59 06:59 06:59
Intake Total 960 / 960 720 / 720
Balance 960 / 960 720 / 720
Review of Systems
-
History Source: Patient
All other systems: Reviewed and negative
Physical Exam
-
General: No Apparent Distress
HEENT: Normocephalic
Respiratory: Clear to Auscultation
GI: Soft, Nontender and Nondistended
Skin: Warm
Neuro: Awake, Alert, Oriented and AO x 3
Psych: Calm
--- NOTE | 2025-04-30 11:33 | W.DCSUMMARY ---
Discharge Summary
Discharge Data
Date of Admission: 04/25/25
Date of Discharge: 04/30/25
-
Pending Results: No
Hospital Course
80yo F with PMHX of hypothyroidism, anxiety, HX of CVA, HTN, Hx of hysterectomy came with generalized weakness and dysuria, managed for UTI with ESBL E.coli. ID recommended outpatient eval with Dr.Gotlieb katz to interstitial cystitis. MIdline
placed, merrem planned till 05/01/25. Also radiographic liver cirrhosis with normal LFT - will need further outpatient w/u. Referrals rovided. Medically stable for d/c. Discussed instructions with daughter over the phone in details
I have spent at least 38min reviewing chart, test results, communication with consultants, daughter and providing direct patient care
Patient was managed for:
#Interstitial cystitis
#Small hiatal hernia
#Constipation
#DJD
#HX of CVA
#Essential HTN
#Radiographic liver cirrhosis
Discharge Plan
-
Patient Disposition: Half-Way/SNF
Discharge Diagnosis/Procedures: ESBL UTI
Condition: Good
Diet: As tolerated
Activity: As tolerated
Others Tests: We have scheduled a lower extremity ultrasound on 05/12/2025 at 3pm here at [facility], this is vital for your appointment with Dr. Steve Morrison.
Activity Restrictions/Additional Instructions:
With saying that we will need outpatient follow-up with a urogynecologist ideally with Dr. Dr [facility] for suspected interstitial cystitis.
Referrals:
Becca Null DO [Active, Urology] - in one to two weeks
Referral Note: for interstitial cystitis/urogyn
Rona Wilson DO [Family Provider, Family Practice]
Steve Morrison MD [Active, Vascular Surgery] - 05/13/25 8:00 am
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
Zamzam Cedillo DO [Active, Gastroenterology] - in two to three weeks
Additional Discharge Medication Instructions: Merrem last day on 05/01/25
Prescriptions:
New
meropenem 1 gram Recon Soln
1,000 mg IV Q12
docusate sodium 100 mg Capsule
100 mg PO BID Qty: 30 0RF
Continued
polyethylene glycol 3350 [Miralax] 17 gram Powder In Packet
17 g PO DAILYPRN PRN (Reason: constipation)
venlafaxine 150 mg Capsule,Extended Release 24hr
300 mg PO Q48H
venlafaxine 150 mg Capsule,Extended Release 24hr
150 mg PO Q48H
omeprazole 40 mg Capsule,Delayed Release(Dr/Ec)
40 mg PO NOON
atorvastatin 40 mg Tablet
40 mg PO QPM Qty: 0 0RF
trazodone 50 mg tablet
50 mg PO HS
cetirizine 10 mg tablet
10 mg PO DAILY
levothyroxine 75 mcg tablet
75 mcg PO DAILY
topiramate 25 mg tablet
50 mg PO BID
Discharge Orders:
Discharge Patient (As Directed); Ordered 04/27/25
Ordered By: Oscar Nazario
Discharge Date and Time
Print Language: JAPANESE
[2025-04-30] MEDS: PROTONIX 40 MG PO (12:11)
[2025-04-30 13:08] VITALS: BP 122/62
--- NOTE | 2025-04-30 13:45 | CM ---
F/U: ALEXSANDER Dueñas called [facility] and was able to obtain auth for admission to [facility], ALEXSANDER Dueñas confirmed patient can come.
#[id number]
04/29 to 05/03 (Facility will call to change the dates)
NRD 05/04 to [facility].. fax: [phone]
Auth given to florencia Granger. Transport set up for 1:30pm, IMM competed. PLAN: SNF at [facility].
== END 2025-04-30 13:30 | DRG 690 ==
LOC: 4 WEST ACU 22:35
PROVIDERS: ADMITTING PHYSICIAN Hospitalist; ATTENDING PHYSICIAN Internal Medicine; CONSULT PHYSICIAN Physical Medicine & Rehabilitation; EMERGENCY PHYSICIAN Emergency Medicine; FAMILY PHYSICIAN Family Medicine; OTHER PHYSICIAN Student in an Organized Health Care Education/Training Program
DX: N30.10 Interstitial cystitis (chronic) without hematuria (principal); Z16.12 Extended spectrum beta lactamase (ESBL) resistance; I69.351 Hemiplegia and hemiparesis following cerebral infarction affecting right dominant side; K44.9 Diaphragmatic hernia without obstruction or gangrene; I10 Essential (primary) hypertension; K74.60 Unspecified cirrhosis of liver; B96.4 Proteus (mirabilis) (morganii) as the cause of diseases classified elsewhere; E78.00 Pure hypercholesterolemia, unspecified; G43.909 Migraine, unspecified, not intractable, without status migrainosus; F41.9 Anxiety disorder, unspecified; F32.A Depression, unspecified; E03.9 Hypothyroidism, unspecified; Z90.710 Acquired absence of both cervix and uterus; M47.819 Spondylosis without myelopathy or radiculopathy, site unspecified; N28.9 Disorder of kidney and ureter, unspecified; M43.16 Spondylolisthesis, lumbar region; G89.29 Other chronic pain; H81.09 Meniere's disease, unspecified ear; K21.9 Gastro-esophageal reflux disease without esophagitis; K58.9 Irritable bowel syndrome, unspecified; Z79.890 Hormone replacement therapy; Z79.899 Other long term (current) drug therapy; Z87.891 Personal history of nicotine dependence
CPT/HCPCS: 74176; 80053; 81003; 81015; 85025; 86704; 86706; 86803; 87086; 87340; 96374; 97163; 97167; 97530; 99285; J2185